=== PATIENT | female | born 1975 | race Caucasian/White ===

== ENCOUNTER 2016-09-02 06:12 | Inpatient (IN) | payer OTHER, MEDICAID ==
[2016-09-02] MEDS ORDERED: ceFAZolin 2 GM PREMIX (*) 2 GM/50 ML BAG IVPB ONE (06:38)
[2016-09-02] MEDS ORDERED: Ondansetron INJ* 2 MG/ML VIAL ONE (07:49)
[2016-09-02] MEDS ORDERED: Ketorolac INJ* 30 MG/ML 1 ML VIAL ONE (07:49)
[2016-09-02] MEDS ORDERED: OXYTOCIN* 10 UNITS/ML 1 ML VIAL ONE (07:49)
[2016-09-02] MEDS ORDERED: Morphine PF AMP (0.5MG/ML)* 5 MG/10 ML AMP ONE (07:50)
[2016-09-02] MEDS ORDERED: Phenylephrine IV* 40 MCG/ML 10 ML SYRINGE ONE (08:29)
[2016-09-02] MEDS ORDERED: oxyCODONE TAB* 5 MG TAB PO PRN (08:41)
[2016-09-02] MEDS ORDERED: DiMENhydriNATE IV* 50 MG/ML VIAL IV PUSH PRN (08:41)
[2016-09-02] MEDS ORDERED: ACETAMINOPHEN 1 GM/100 ML IVPB ONE (08:41)
[2016-09-02] MEDS ORDERED: HYDROmorphone INJ* 1 MG/ML CARPUJECT SYRINGE IV PRN (08:41)
[2016-09-02] MEDS ORDERED: Nalbuphine* 20 MG/ML 1 ML VIAL IV PRN (08:43)
[2016-09-02] MEDS ORDERED: Naloxone* 0.4 MG/ML 1 ML VIAL IV PRN (08:43)
[2016-09-02] MEDS ORDERED: Ondansetron INJ* 2 MG/ML VIAL IV PRN (08:43)
[2016-09-02] MEDS ORDERED: Acetaminophen TAB* 325 MG PO PRN (08:43)
[2016-09-02] MEDS ORDERED: Glycerin ADULT SUPP PR PRN (09:45)
[2016-09-02] MEDS ORDERED: Witch Hazel PAD* JAR TOPICAL PRN (09:45)
[2016-09-02] MEDS ORDERED: Dibucaine 1% 28.35 GM TUBE PR PRN (09:45)
[2016-09-02] MEDS ORDERED: Oxytocin in LR* 20 UNITS/1,000 ML BAG IVPB SCH (10:00)
[2016-09-02] MEDS: Ibuprofen TAB* 600 MG PO PRN ×2 (11:58→18:16)
[2016-09-02] MEDS: Simethicone TAB* 80 MG TAB.CHEW PO SCH ×3 (11:58→19:54)
[2016-09-02] MEDS: oxyCODONE/Acetamin 5/325 MG* TAB PO PRN ×3 (11:59→19:54)
[2016-09-02] MEDS: Docusate CAP* 100 MG PO SCH ×2 (14:15→19:54)
--- NOTE | 2016-09-02 22:10 | OP ---
DATE OF OPERATION: 09/02/16 - ROOM #117 DATE OF : 79 SURGEON: Lionel Bingham MD BORDER MEASURER AND CUTTER: Glenis Mcmahon CNM ANESTHESIOLOGIST: Karina Hassan MD ANESTHESIA: Spinal with Duramorph. PRE-OP DIAGNOSIS: Previous section and desires permanent sterilization. POST-OP DIAGNOSIS: Previous section and desires permanent sterilization. OPERATIVE PROCEDURE: Low transverse section and bilateral tubal ligation. COMPLICATIONS: None. FINDINGS: Include a viable female, Apgars 9 and 9, and weight was 6 pounds 11 ounces. ESTIMATED BLOOD LOSS: 600 cc. DESCRIPTION OF PROCEDURE: The patient identified, procedure identified as a low transverse section and bilateral tubal ligation. The patient was taken to the operating room and under spinal anesthesia, was prepped and draped in the usual fashion on the left lateral recumbent position. A Pfannenstiel incision was made in the abdomen through the old incision, carried down through fat, fascia, and peritoneum. A bladder flap was created via sharp and blunt dissection. A transverse incision was made in the lower uterine segment and extended laterally using the bandage scissors. The above infant was delivered through the incision with ease. The cord was doubly clamped and cut. The was handed to the waiting bandage maker. Cord blood was obtained. Placenta delivered spontaneously. The uterus was wiped out with a wet lap sponge. The uterine incision was then closed using 0 Polysorb in a running fashion. A second layer was used to imbricate the first layer. The right fallopian tube was followed out to its fimbriated end. The fimbria was clamped with a Lillie and ligated x2 and then excised. The same procedure was carried out on the left after following it out to its fimbriated end. Good hemostasis was verified. Uterus was placed back in the abdominal cavity. The peritoneum was then closed using 3-0 Polysorb in a running fashion. Good hemostasis was achieved in the subrectus layers. The fascia was closed using 0 Polysorb in a running fashion. The skin was undermined with Bovie and then copious irrigation was utilized and suctioned out. Good hemostasis was verified and the skin was closed with 4-0 Monocryl in a subcuticular fashion. All sponge and instrument counts were correct. The patient was returned to the recovery room in stable condition. [id number]/[place] #: [id number] [facility]
[2016-09-03] MEDS ORDERED: Acetaminophen TAB* 325 MG PO PRN (01:00)
[2016-09-03] MEDS ORDERED: Zolpidem TAB* 5 MG PO PRN (01:00)
[2016-09-03] MEDS: oxyCODONE/Acetamin 5/325 MG* TAB PO PRN ×5 (01:12→20:00)
[2016-09-03 07:24] LABS: Hematocrit 32 % (35-47); Hemoglobin 10.8 g/dl (12.0-16.0); Mean Corpuscular HGB Conc 33 g/dl (31-36); Mean Corpuscular Hemoglobin 30 pg (27-31); Mean Corpuscular Volume 90 fL (80-97); Mean Platelet Volume 10 um3 (7.4-10.4); Red Cell Distribution Width 14 % (10.5-15); White Blood Count 10.5 10^3/ul (3.5-10.8)
[2016-09-03] MEDS: Simethicone TAB* 80 MG TAB.CHEW PO SCH ×3 (07:42→20:00)
[2016-09-03] MEDS: Docusate CAP* 100 MG PO SCH ×3 (07:42→20:00)
[2016-09-03] MEDS: Ibuprofen TAB* 600 MG PO PRN ×3 (07:43→20:00)
[2016-09-03] MEDS ORDERED: Ferrous Gluconate TAB* 324 MG TAB PO SCH (09:00)
[2016-09-04] MEDS: oxyCODONE/Acetamin 5/325 MG* TAB PO PRN ×5 (01:00→21:41)
[2016-09-04] MEDS: Ibuprofen TAB* 600 MG PO PRN ×3 (07:22→19:37)
[2016-09-04] MEDS: Docusate CAP* 100 MG PO SCH ×3 (07:23→21:41)
[2016-09-04] MEDS: Simethicone TAB* 80 MG TAB.CHEW PO SCH ×5 (07:23→21:41)
[2016-09-05] MEDS: Ibuprofen TAB* 600 MG PO PRN ×2 (03:43→10:09)
[2016-09-05] MEDS: oxyCODONE/Acetamin 5/325 MG* TAB PO PRN ×2 (03:44→08:19)
[2016-09-05] MEDS: Docusate CAP* 100 MG PO SCH (08:19)
[2016-09-05] MEDS: Simethicone TAB* 80 MG TAB.CHEW PO SCH (08:19)
[2016-09-05 08:25] VITALS: BP 98/60
== END 2016-09-05 12:24 | disposition home or self-care (01) | DRG 540 ==
LOC: MCHOB 06:12
PROVIDERS: ADMIT Obstetrics & Gynecology; ATTEND Obstetrics & Gynecology
PROC: 4A1HXCZ Monitoring of Products of Conception, Cardiac Rate, External Approach (ICD-10-PCS; 2016-09-02)
PROC: 0UB70ZZ Excision of Bilateral Fallopian Tubes, Open Approach (ICD-10-PCS; 2016-09-02)
PROC: 10D00Z1 Extraction of Products of Conception, Low, Open Approach (ICD-10-PCS; principal; 2016-09-02 07:45)
DX: O34.211 Maternal care for low transverse scar from previous cesarean delivery (principal); O09.523 Supervision of elderly multigravida, third trimester; Z3A.39 39 weeks gestation of pregnancy; Z37.0 Single live birth; Z30.2 Encounter for sterilization
CPT/HCPCS: 36415; 85025; 88302; A9270-GY; J0690; J1885; J2405; J2590

== ENCOUNTER 2018-03-13 12:23 | Inpatient (IN) | payer OTHER, MEDICAID ==
[2018-03-13] MEDS ORDERED: NS 0.9% 1000 ML* 1,000 ML IV ONE ×3 (13:08→17:33)
[2018-03-13] MEDS ORDERED: Ciprofloxacin 400MG IVPREMIX(* 400 MG/200 ML BAG IVPB ONE (13:08)
--- NOTE | 2018-03-13 13:08 | ED ---
Abdominal Pain/Female - HPI Summary HPI Summary: This is scribe Bing Kem documenting for attending Rio Rivera MD. 42 year old F presenting to [facility] with complains of sharp right flank pain that radiates to her abdomen and her back since PM two days ago. The patient rates the pain 10/10 in severity. Symptoms aggravated by nothing. Symptoms alleviated by nothing. Patient's delivers HPI because patient does not speak Tamazight. He reports nausea and dizziness. He denies vomiting, painful urination. Patient additionally complains of fever x1 days, no cough. - History of Current Complaint Chief Complaint: EDFlankPain Stated Complaint: FEVER/ABD PAIN Time Seen by Provider: 03/13/18 12:54 Hx Obtained From: Family/Third Loader - Onset/Duration: Lasting Days - 2, Still Present Timing: Constant Severity Currently: Severe Pain Intensity: 10 Pain Scale Used: 0-10 Numeric Location: Flank - right Radiates: Yes Radiates to: Back, Other - abdomen Character: Sharp Aggravating Factor(s): Nothing Alleviating Factor(s): Nothing Associated Signs and Symptoms: Positive: Fever, Nausea, Other: - dizziness. Negative: Cough, Vomiting Allergies/Adverse Reactions: Allergies Allergy/AdvReac Type Severity Reaction Status Date / Time No Known Allergies Allergy Verified 03/13/18 12:51 Home Medications: Home Medications NK [No Home Medications Reported] 03/13/18 [History Confirmed 03/13/18] PMH/Surg Hx/FS Hx/Imm Hx Previously Healthy: No Endocrine/Hematology History: Denies: Hx Diabetes Cardiovascular History: Denies: Hx Hypertension Respiratory History: Denies: Hx Asthma - Surgical History Surgery Procedure, Year, and Place: csection x 3. bilateral tubal ligation Infectious Disease History: No Infectious Disease History: Denies: Traveled Outside the [place] in Last 30 Days - Family History Known Family History: Positive: Other - parents and grandparents at old age - Social History Alcohol Use: None Hx Substance Use: No Substance Use Type: Reports: None Hx Tobacco Use: No Smoking Status (MU): Never Smoked Tobacco Have You Smoked in the Last Year: No Review of Systems Positive: Fever Negative: Cough Positive: Nausea, Other - sharp right flank pain that radiates to her abdomen and back. Negative: Vomiting Neurological: Negative - Dizziness All Other Systems Reviewed And Are Negative: Yes Physical Exam - Summary Physical Exam Summary: Appearance: The patient is well-nourished in no moderate distress and in no acute pain. Skin: Patient is diaphoretic. HEENT: The head is normocephalic and atraumatic. The pupils are equal and reactive. The conjunctivae are clear and without drainage. Nares are patent and without drainage. Mouth reveals moist mucous membranes and the throat is without erythema and exudate. The external ears are intact. The ear canals are patent and without drainage. The tympanic membranes are intact. Neck: The neck is supple with full range of motion and non-tender. There are no carotid bruits. There is no neck vein distension. Respiratory: Chest is non-tender. Lungs are clear to auscultation and breath sounds are symmetrical and equal. Cardiovascular: Heart is regular rate and rhythm. There is no murmur or rub auscultated. There is no peripheral edema and pulses are symmetrical and equal. Abdomen: The abdomen is soft and non-tender. There are normal bowel sounds heard in all four quadrants and there is no organomegaly palpated. Musculoskeletal: There is no back tenderness noted. Extremities are non-tender with full range of motion. There is good capillary refill. There is no peripheral edema or calf tenderness elicited. Neurological: Patient is alert and oriented to person, place and time. The patient has symmetrical motor strength in all four extremities. Cranial nerves are grossly intact. Deep tendon reflexes are symmetrical and equal in all four extremities. Psychiatric: The patient has an appropriate affect and does not exhibit any anxiety or depression. Triage Information Reviewed: Yes Vital Signs On Initial Exam: Initial Vitals Temp Pulse Resp BP Pulse Ox 103.1 F 126 26 91/57 100 03/13/18 12:30 03/13/18 12:30 03/13/18 12:30 03/13/18 12:30 03/13/18 12:30 Vital Signs Reviewed: Yes Diagnostics - Vital Signs Vital Signs Temp Pulse Resp BP Pulse Ox 03/13/18 12:30 103.1 F 126 26 91/57 100 - Laboratory Result Diagrams: 03/13/18 13:27 03/13/18 13:27 Lab Statement: Any lab studies that have been ordered have been reviewed, and results considered in the medical decision making process. - CT Abd/Pel CT Interpretation Completed By: Radiologist - NO APPRECIABLE HYDRONEPHROSIS OR NEPHRO LITHIASIS. NO ACUTE NONCONTRAST CT PATHOLOGY OF THE VISUALIZED ABDOMEN OR PELVIS. ED physician has reviewed this report. Abdominal Pain Fem Course/Dx - Course Course Of Treatment: Ms Pierce presents to the emergency department complaining of right flank pain. Initially she had some dysuria but that has disappeared. Her urine did look to be infected. CT scan showed no sign of stone or obstruction. She presented febrile and tachycardic with a "soft" blood pressure. She got fluids and Cipro IV and the hospitalists were asked to admit her. - Diagnoses Provider Diagnoses: Sepsis, Pyelonephritis - Provider Notifications Discussed Care Of Patient With: Iggy Wells Time Discussed With Above Provider: 15:00 Instructed by Provider To: Other - Dr. Wells, hospitalist, agrees to admit patient. - Critical Care Time Critical Care Time: 30-74 min Discharge - Sign-Out/Discharge Documenting (check all that apply): Patient Departure - Admit - Discharge Plan Condition: Stable Disposition: ADMITTED TO [facility] Referrals: No Primary Care Phys,NOPCP [Primary Care Provider] - - Billing Disposition and Condition Condition: STABLE Disposition: Admitted to [facility]
[2018-03-13] MEDS ORDERED: Acetaminophen TAB* 325 MG PO ONE (13:09)
[2018-03-13] MEDS ORDERED: Ciprofloxacin 400MG IVPREMIX(* 400 MG/200 ML BAG ONE (13:13)
[2018-03-13 13:36] LABS: ABS Basophils 0 10^3/ul (0-0.2); ABS Eosinophils 0 10^3/ul (0-0.6); ABS Lymphocytes 0.6 10^3/ul (1.0-4.8); ABS Monocytes 0.8 10^3/ul (0-0.8); ABS Neutrophils 8.2 10^3/ul (1.5-7.7); ABS Nucleated RBC 0 10^3/ul; Eosinophil % 0.1 % (0-6); Hematocrit 38 % (35-47); Hemoglobin 12.7 g/dl (12.0-16.0); Mean Corpuscular HGB Conc 34 g/dl (31-36); Mean Corpuscular Hemoglobin 30 pg (27-31); Mean Corpuscular Volume 89 fL (80-97); Mean Platelet Volume 10.1 um3 (7.4-10.4); Nucleated Red Blood Cells % 0.1; Platelet Count 151 10^3/ul (150-450); Red Blood Count 4.27 10^6/ul (4.00-5.40); Red Cell Distribution Width 13 % (10.5-15); White Blood Count 9.6 10^3/ul (3.5-10.8)
--- NOTE | 2018-03-13 14:30 | RAD ---
CLINICAL HISTORY: right flank pain COMPARISON: March 03, 2015 TECHNIQUE: Multiple contiguous axial CT scans were obtained of the abdomen and pelvis, without intravenous contrast enhancement. Coronal and sagittal multiplanar reformations are submitted for review. Oral contrast was not administered. FINDINGS: The study is limited by the lack of intravenous contrast. This limits evaluation of the solid organs and vasculature. LUNG BASES: The lung bases are clear. LIVER: There is a simple cyst of the left lobe of liver. BILE DUCTS: There is no intrahepatic or extrahepatic biliary dilatation. GALLBLADDER: The gallbladder is normal, without pericholecystic inflammatory change. PANCREAS: The pancreas is normal, without mass or ductal dilatation. SPLEEN: Normal in size and appearance. UPPER GI TRACT: Evaluation of the gastrointestinal tract is limited by incomplete gastric distention. The upper GI tract is unremarkable. SMALL BOWEL AND MESENTERY: The small bowel is normal in contour, course, and caliber. There is no obstruction or dilatation. COLON: The colon is normal in contour, course, caliber. There is no pericolonic inflammatory change. The appendix is not well-visualized. There is no inflammatory change within the right lower quadrant. ADRENALS: Normal bilaterally. KIDNEYS: The kidneys are normal in shape, size, contour, and axis. There is no hydronephrosis or nephrolithiasis. BLADDER: The bladder is smooth in contour. PELVIC ORGANS: The uterus and adnexa are grossly normal for technique. AORTA: The aorta is normal. IVC: Unremarkable LYMPH NODES: There is no lymphadenopathy by size criteria. ABDOMINAL WALL: There is no evidence for abdominal wall hernia. BONES AND SOFT TISSUES: The bones and soft tissues are unremarkable. OTHER: None IMPRESSION: NO APPRECIABLE HYDRONEPHROSIS OR NEPHRO LITHIASIS. NO ACUTE NONCONTRAST CT PATHOLOGY OF THE VISUALIZED ABDOMEN OR PELVIS.
[2018-03-13 14:42] LABS: Urine Appearance Cloudy; Urine Blood 1+ (Negative); Urine Color Yellow; Urine Ketones 1+ (Negative); Urine Protein Negative (Negative); Urine Red Blood Cell 2+(6-10/hpf) (Absent); Urine Specific Gravity 1.009 (1.010-1.030); Urine Urobilinogen Negative (Negative); Urine White Blood Cell 3+(>20/hpf) (Absent)
[2018-03-13] MEDS ORDERED: Ketorolac INJ* 30 MG/ML 1 ML VIAL IV PUSH ONE (17:02)
[2018-03-13] MEDS ORDERED: Ketorolac INJ* 15 MG/ML 1 ML VIAL ONE (17:03)
[2018-03-13] MEDS ORDERED: cefTRIAXone(*) 1 GM in NS 0.9% 50 ML* 50 ML IVPB ONE (17:33)
[2018-03-13] MEDS ORDERED: Potassium Chlor TAB* 20 MEQ TAB.ER PO ONE (17:53)
[2018-03-13] MEDS ORDERED: traMADol TAB* 50 MG PO PRN (18:06)
[2018-03-13] MEDS ORDERED: Ketorolac INJ* 15 MG/ML 1 ML VIAL IV PUSH PRN (18:06)
--- NOTE | 2018-03-13 19:21 | PN ---
Sepsis Event Evaluation Date of Evaluation: 03/13/18 Time of Evaluation: 19:10 Current Stage of Sepsis: Septic Shock Vital Signs - Last 12 Hours: Vital Signs - 12 hr Temp Pulse Resp BP Pulse Ox 03/13/18 18:32 24 03/13/18 17:48 98.3 F 03/13/18 17:35 99.7 F 108 24 84/44 99 03/13/18 17:30 112 92/51 97 03/13/18 17:00 103 98/48 99 03/13/18 16:36 101.2 F 102 90/52 100 03/13/18 16:35 101 100 03/13/18 15:30 107 94/53 98 03/13/18 15:13 105 81/48 97 03/13/18 15:01 115 98 03/13/18 15:00 113 87/58 98 03/13/18 14:33 114 94/49 98 03/13/18 14:31 101.2 F 03/13/18 14:14 109 98 03/13/18 13:00 122 93/58 100 03/13/18 12:30 103.1 F 126 26 91/57 100 Lactic Acid: 03/13/18 03/13/18 13:27 18:04 Lactic Acid 1.8 1.0 - Cardiopulmonary Exam Capillary Refill: Immediate Respiratory: Symmetrical Chest Expansion and Respiratory Effort Cardiovascular: NL Sounds; No Murmurs; No JVD, RRR - Peripheral Pulse Exam Pedal Pulses: Bilateral Normal - Skin Exam Skin Exam: Normal Turgor - Melody Coma Scale Best Eye Response: 4 - Spontaneous Best Motor Response: 6 - Obeys Commands Best Verbal Response: 5 - Oriented Coma Scale Total: 15 Assess/Plan/Problems-Billing Assessment:
--- NOTE | 2018-03-13 22:12 | HP ---
HISTORY AND PHYSICAL: DATE OF ADMISSION: 03/13/18 ADMITTING PROVIDER: Iggy Wells MD PRIMARY CARE PROVIDER: None. CHIEF COMPLAINT: Flank pain, abdominal pain, fevers, chills, dizziness. HISTORY OF PRESENT ILLNESS: Eileen Barajas is a Mexican speaking 42-year-old female, no prior medical history, who presented with 36 hours of abdominal and flank pain and night prior to admission developed fevers, chills, shakes. Notably 2 weeks ago, she had dysuria and increased frequency which lasting 3 to 4 days, and then resolved spontaneously. She denies history of urinary tract infections. She currently describes the pain in the bilateral lower abdominal quadrants extremities, but worse in the right flank, which had been 10/10 and unrelenting. She has been taking Tylenol without relief also for the fevers. She had some nausea, but no vomiting. No blood in her stools. History was provided , who speaks better Macedonian and is her medical surrogate, William Barajas. In the [facility] Emergency Room, she was found to have fevers high as 103.1 initially, tachycardic up to 126, blood pressures 90s/50s, low of 81/ 48. She has gotten 2 L of normal saline fluid so far. Lactic acid is 1.8, CRP of 89. Lipase of negative 10. Urinalysis is significant for 1+ ketones, 1+ blood, positive nitrites, 1+ leukocyte esterases, 3+ wbc's, 2+ rbc's, and 1+ bacteria. She had a CT abdomen and pelvis, which demonstrated impression of no appreciable hydronephrosis or nephrolithiasis. No acute noncontrast CT pathology of the visualized abdomen or pelvis. She was referred to hospitalist service for admission for sepsis secondary to pyelonephritis/UTI. She was given a dose of 400mg of ciprofloxacin, Tylenol, and ketorolac. PAST MEDICAL HISTORY: None. MEDICATIONS: None except occasional Tylenol. ALLERGIES: No known drug allergies. FAMILY HISTORY: Mother is alive. Father had approximately at age 65, but does not have full details given separation between parents. 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 She is a never drinker, never a smoker. No drug use. Medical surrogate is William Barajas, her . She wishes to be a full code. REVIEW OF SYSTEMS: A complete 14-point review of systems negative except as per HPI. She denies cough, chest pain, chest tightness, shortness of breath, neck stiffness, headache, or visual changes. No sick contacts. She did go to a "festival" and had potato, chicken, and beef the day prior to the abdominal pain on Tuesday. PHYSICAL EXAMINATION GENERAL APPEARANCE: In no acute distress. VITAL SIGNS: Temperature currently 101.2 (Tmax 103.1), pulse rate 103, saturating 99% on room air, blood pressure 98/48. HEENT: Normocephalic, atraumatic. Pupils are equal, round, and reactive to light. Extraocular motions intact. No scleral icterus. Moist mucous membranes. No oropharyngeal lesions. PULMONARY: Clear to auscultation bilaterally with no wheezing, rales, or rhonchi. CARDIOVASCULAR: Tachycardic, regular. No murmurs, rubs, or gallops. ABDOMEN: Soft, minimally tender to palpation in the lower quadrants. No rebound, no guarding, no Zimmerman sign. No significant CVA tenderness on palpation. EXTREMITIES: Warm and well perfused. Slight tenderness noted on the left anterior york. NEURO: Cranial nerves II through XII intact. Moving all extremities. Independent Sales Representative strength 5/5. SKIN: No lesions. No rashes. DIAGNOSTIC STUDIES/LABORATORY DATA: White count 9.6, hemoglobin 12.7, hematocrit 38, platelets 151, neutrophil percentage 85.4%. Sodium 138, potassium 3.4, chloride 108, carbon dioxide 20, BUN 7, creatinine 0.65, glucose 108, lactic acid 1.8, calcium 8.4. Total bili 0.9, AST 8, ALT 5, alk phos 55. CRP 89. Total protein 6.3. Lipase negative 10. Albumin 3.5. Urinalysis significant for specific gravity 1.009, 1+ ketones, 1+ blood, positive nitrites , 1+ leukocyte esterase, 3+ wbc's, 2+ rbc's, 1+ bacteria. Imaging: CT abdomen and pelvis, noncontrast, demonstrated no acute CT pathology of the visualized abdomen and pelvis including no appreciable hydronephrosis or nephrolithiasis. ASSESSMENT AND PLAN: Eileen Barajas is a 42-year-old Mexican speaking otherwise healthy female presenting with 2 days of severe abdominal and flank pain, now 16 hours of high fevers up to at least 103 here. She has evidence of urinary tract infection, though no hydronephrosis or fat stranding on the noncontrast CT abdomen and pelvis. She was started on ciprofloxacin and will be transitioned to ceftriaxone. She is relatively hypotensive, MAP is currently 68 , but she has been as low in the room in the mid 50s. I am giving her 1 L more bolus of normal saline, MAP goal of 65, suspicion for sepsis secondary to pyelonephritis. We will follow up urine cultures. Unfortunately blood cultures were not obtained prior to antibiotic administration in the ED. The patient has fevers for first few days and will be admitted to inpatient status and check CBC and BMP daily. Replete her electrolytes, potassium above 4, and magnesium. She is a full code. Medical surrogate is her , William Barajas. She will continue the cardiac diet. For DVT prophylaxis, heparin 5000 t.i.d. [id number]/[facility] #: [id number] [facility]
[2018-03-13] MEDS ORDERED: Ondansetron ODT TAB* 4 MG SL PRN (23:21)
[2018-03-14] MEDS: Acetaminophen TAB* 325 MG PO PRN ×2 (02:15→15:21)
[2018-03-14 07:01] LABS: ABS Basophils 0 10^3/ul (0-0.2); ABS Eosinophils 0 10^3/ul (0-0.6); ABS Lymphocytes 1.2 10^3/ul (1.0-4.8); ABS Monocytes 0.9 10^3/ul (0-0.8); ABS Neutrophils 6.8 10^3/ul (1.5-7.7); ABS Nucleated RBC 0 10^3/ul; Eosinophil % 0.2 % (0-6); Hematocrit 33 % (35-47); Hemoglobin 10.8 g/dl (12.0-16.0); Lymphocyte % 13.3 % (25-47); Mean Corpuscular HGB Conc 33 g/dl (31-36); Mean Corpuscular Hemoglobin 30 pg (27-31); Mean Corpuscular Volume 90 fL (80-97); Nucleated Red Blood Cells % 0; Platelet Count 124 10^3/ul (150-450); Red Blood Count 3.62 10^6/ul (4.00-5.40); Red Cell Distribution Width 13 % (10.5-15); White Blood Count 8.9 10^3/ul (3.5-10.8)
[2018-03-14 07:32] LABS: EGFR Non-African American 122.4 (>60)
--- NOTE | 2018-03-14 13:46 | PN ---
Subjective Date of Service: 03/14/18 Interval History: Ms. Pierce is feeling better this morning. She has been afebrile for a few hours. Her tachycardia has resolved. Her SBP remains in 85-90s. She denies complaint. She specifically denies flank pain, abdominal pain, nausea, or dysuria. She further denies chest pain or SOB. Objective Active Medications: Acetaminophen (Tylenol Tab*) 650 mg PO Q6H PRN Ceftriaxone Sodium 1 gm/ (Sodium Chloride) 50 mls @ 200 mls/hr IVPB Q24H FIDEL[facility] Ketorolac Tromethamine (Toradol Inj*) 15 mg IV PUSH Q6H PRN Ondansetron HCl (Zofran Odt Tab*) 4 mg SL Q6H PRN Tramadol HCl (Ultram*) 50 mg PO Q6H PRN Vital Signs: Temp Pulse Resp BP Pulse Ox 98.3 F 90 18 89/52 100 03/14/18 11:17 03/14/18 11:17 03/14/18 11:17 03/14/18 11:17 03/14/18 11:17 Oxygen Devices in Use Now: None Result Diagrams: 03/14/18 06:50 03/14/18 06:50 Assess/Plan/Problems-Billing Assessment: Ms. Pierce is a 42 yo female with no significant PMH who was admitted on with sepsis secondary to pyelonephritis. - Patient Problems (1) Sepsis Comment: - Afebrile this morning, tachycardia resolved, remains relatively hypotensive. - Lactic acid 1.8 -> 1.0. - Plan for additional fluid bolus and them resume maintenance fluids. - Abx per below. (2) Pyelonephritis Comment: - Symptoms resolving. - Presented with flank pain with fever, tachycardia and suspected UTI. - CT without evidence of stranding or hydronephrosis. - UA positive but urine culture shows no growth. BC pending, however they were obtained after abx were started and may be of low yield. - Continue ceftriaxone for 24 hours and then consider d/c on oral abx. (3) Anemia Comment: - Intermittent chronic, ? related to menses. - Iron studies, B12, folate pending. - Follow up with PCP as indicated. (4) DVT prophylaxis Comment: - SCDs. (5) Full code status Comment: Status and Disposition: Inpatient. Anticipate discharge to home when medically stable.
[2018-03-14] MEDS ORDERED: NS 0.9% 1000 ML* 1,000 ML IV ONE (13:50)
[2018-03-14] MEDS: NS 0.9% 1000 ML* 1,000 ML IV SCH ×3 (15:22→23:51)
--- NOTE | 2018-03-14 16:54 | RAD ---
INDICATION: Pyelonephritis. COMPARISON: Comparison is made with a prior CT of the abdomen and pelvis from March 13, 2018. TECHNIQUE: Multiple real-time images of the kidneys were obtained. FINDINGS: The kidneys are normal in size shape and echogenicity. The right kidney measured 12.0 x 4.1 x 5.1 cm and the left kidney measured 11.7 x 5.0 x 4.9 cm. No focal renal abnormality or hydronephrosis is seen. There is a small amount of fluid in the perinephric space adjacent to the superior and inferior poles of the right kidney. No abscess is seen. IMPRESSION: SMALL AMOUNT OF FLUID IN THE RIGHT PERINEPHRIC SPACE CONSISTENT WITH THE PATIENT'S HISTORY OF PYELONEPHRITIS.
[2018-03-14] MEDS: cefTRIAXone(*) 1 GM in NS 0.9% 50 ML* 50 ML IVPB SCH (17:47)
[2018-03-15 06:56] LABS: ABS Basophils 0 10^3/ul (0-0.2); ABS Eosinophils 0.1 10^3/ul (0-0.6); ABS Lymphocytes 1.2 10^3/ul (1.0-4.8); ABS Monocytes 0.5 10^3/ul (0-0.8); ABS Neutrophils 3.4 10^3/ul (1.5-7.7); ABS Nucleated RBC 0 10^3/ul; Eosinophil % 1.3 % (0-6); Hematocrit 30 % (35-47); Hemoglobin 10.1 g/dl (12.0-16.0); Lymphocyte % 22.9 % (25-47); Mean Corpuscular HGB Conc 34 g/dl (31-36); Mean Corpuscular Hemoglobin 30 pg (27-31); Mean Corpuscular Volume 88 fL (80-97); Mean Platelet Volume 10.6 um3 (7.4-10.4); Nucleated Red Blood Cells % 0; Platelet Count 104 10^3/ul (150-450); Red Blood Count 3.37 10^6/ul (4.00-5.40); Red Cell Distribution Width 13 % (10.5-15); White Blood Count 5.1 10^3/ul (3.5-10.8)
[2018-03-15 07:15] LABS: EGFR Non-African American 136.6 (>60)
[2018-03-15] MEDS: NS 0.9% 1000 ML* 1,000 ML IV SCH ×2 (08:30→23:05)
[2018-03-15] MEDS ORDERED: Cyanocobalamin INJ * 1,000 MCG/ML VIAL 1 ML VIAL IM ONE (09:00)
[2018-03-15] MEDS: Docusate CAP* 100 MG PO SCH ×2 (09:50→20:06)
[2018-03-15] MEDS: Polyethylene Glycol 3350* 17 GM PACKET PO SCH ×2 (09:51→20:06)
[2018-03-15] MEDS ORDERED: Magnesium Sulfate 2 GM IV* 2 GM/50 ML BAG IVPB ONE (10:00)
[2018-03-15] MEDS ORDERED: Ferric Gluconate IV* 25 MG in NS 0.9% 50 ML* 50 ML IVPB ONE (10:00)
--- NOTE | 2018-03-15 14:41 | PN ---
Subjective Date of Service: 03/15/18 Interval History: HOSPITALIST PROGRESS NOTE Patient seen and examined at bedside. Care reviewed and d/w Doris Fonseca RN. She doesn't feel better today. Still has nausea, no vomiting; diffuse abdominal discomfort and dysuria. Right flank pain still present, but less intense. Family History: Unchanged from Admission Social History: Unchanged from Admission Past Medical History: Unchanged from Admission Objective Active Medications: Acetaminophen (Tylenol Tab*) 650 mg PO Q6H PRN PRN Reason: FEVER/PAIN Last Admin: 03/14/18 15:21 Dose: 650 mg Docusate Sodium (Colace Cap*) 100 mg PO BID [facility] Last Admin: 03/15/18 09:50 Dose: 100 mg Ceftriaxone Sodium 1 gm/ (Sodium Chloride) 50 mls @ 200 mls/hr IVPB Q24H [facility] Last Admin: 03/14/18 17:47 Dose: 200 mls/hr Sodium Chloride (Ns 0.9% 1000 Ml*) 1,000 mls @ 100 mls/hr IV .ENTER RATE [facility] Ondansetron HCl (Zofran Odt Tab*) 4 mg SL Q6H PRN PRN Reason: NAUSEA/VOMITING Polyethylene Glycol/Electrolytes (Miralax*) 17 gm PO 0800,2100 [facility] Last Admin: 03/15/18 09:51 Dose: 17 gm Tramadol HCl (Ultram*) 50 mg PO Q6H PRN PRN Reason: PAIN Last Admin: 03/13/18 18:32 Dose: 50 mg Vital Signs - 8 hr 03/15/18 03/15/18 07:43 08:00 Temperature 100.4 F Pulse Rate 77 Respiratory 21 21 Rate Blood Pressure 103/66 (mmHg) O2 Sat by Pulse 99 Oximetry Oxygen Devices in Use Now: None Appearance: Young lady lying in bed in [facility]. Eyes: No Scleral Icterus Ears/Nose/Mouth/Throat: Mucous Membranes Moist Neck: Trachea Midline Respiratory: Symmetrical Chest Expansion and Respiratory Effort, Clear to Auscultation Cardiovascular: NL Sounds; No Murmurs; No JVD, RRR Abdominal: - - Soft, mild diffuse tenderness, NG, NR, mild right CVAT, BS+ Extremities: No Edema Neurological: Alert and Oriented x 3, NL Muscle Strength and Tone Result Diagrams: 03/15/18 06:39 03/15/18 06:39 Assess/Plan/Problems-Billing Assessment: Ms. Pierce is a 42 yo female with no significant PMH who presented to ED on with dysuria, flank pain, and fever, found to have sepsis secondary to pyelonephritis. - Patient Problems (1) Sepsis Comment: - Presentation compatible with sepsis on admission with fever and tachycardia. - Source is pyelonephritis. (2) Pyelonephritis Comment: - Present on admission, not Martini catheter related. - Symptoms improved when compared to admission, but still present. - Presented with flank pain, fever, tachycardia and urinalysis showed positive nitrates, LE, WBCs, but culture shows no growth so far - will request ID input. - CT done on admission showed no evidence of stranding or hydronephrosis. US showed small amount of fluid in the right perinephric space, compatible with pyelo - plan to repeat US in 48h. - UA positive but urine culture shows no growth. BC pending, however they were obtained after abx were started and may be of low yield. - Continue ceftriaxone for 24 hours and then consider d/c on oral abx. (3) Anemia Comment: - Combination of iron and B12 deficiencies - will replete. (4) DVT prophylaxis Comment: - SCDs. (5) Full code status Comment: Status and Disposition: Inpatient.
--- NOTE | 2018-03-15 16:37 | CONS ---
CONSULTATION REPORT: DATE OF CONSULT: 03/15/18 REQUESTING PHYSICIAN: Dr. Ray. CONSULTING SERVICE: Infectious Disease. REASON FOR CONSULT: Fever, right flank pain. IMPRESSION: 1. Initially with fever and rigors, severe right flank pain without significant dysuria, though some foul odor to the urine. Urinalysis on admission showed blood, nitrites, leukocyte esterase, white cells. Cultures negative. She had not been taking antibiotics as an outpatient. She had a dose of ciprofloxacin in the emergency room started at the same time as the urine culture was charted out, so it is possible she had a slug of Cipro before. The urine was obtained and that may have led to a false negative urine culture. She does have urinary tract infection and right-sided pyelonephritis, possible early perinephric abscess. 2. History of tubal ligation. 3. Sepsis was present on admission, resolved. RECOMMENDATIONS: Continue ceftriaxone and supportive care. I expect she will have slow and continued improvement over the next few days, but because of the perinephric fluid collection, we should repeat that ultrasound in a couple of days before she leaves. Make sure it is not getting bigger. HISTORY OF PRESENT ILLNESS: This is a 42-year-old woman admitted with onset of fever, shaking chills, malaise, nausea, lower abdominal and right flank pain. The pain was more severe in the right flank. She had a little bit of lower abdominal pain with some foul urine. No dysuria. Because of her worsening symptoms, she came to the hospital on 04/13/18. Her said he had to practically carry her in here. CT abdomen and pelvis at that time was unremarkable and ultrasound done yesterday shows perinephric fluid around the right kidney. Initially, she was febrile to 39.5 degrees with tachycardia and tachypnea. She was started on ciprofloxacin. Her urinalysis had shown blood and nitrites. The culture was sent and it has since come negative. Her energy and appetite are little bit better. Her right flank pain is better, but not gone. Her suprapubic pain has gone. She has no bowel movement in 3 days and she feels bloated today. She is passing gas. Her last fever was this morning at 38 degrees and none overnight, though she said the night before she had sweats and shaking chills, she did not have those last night. Her says she looks much improved even though she is still a little bit uncomfortable, much better than when they got here. She has not had other urinary tract infection in the recent past. PAST MEDICAL HISTORY: Status post x2 and tubal ligation. MEDICATIONS: 1. Atenolol. 2. Docusate. 3. Zofran. 4. Ceftriaxone 1 g a day. 5. Tramadol. FAMILY HISTORY: No recurrent infection. SOCIAL HISTORY: She is from [facility]. She lives here with her and children. She did have a trip back to [facility] about 2 months ago, was there 2 to 3 weeks, was not ill while there. Nobody else have been sick at home. REVIEW OF SYSTEMS: All negative to a 14-point review of systems except as noted above in the history of present illness. PHYSICAL EXAM: Vital Signs: Temperature 38, heart rate 70, respiratory rate 20 , blood pressure 103/66, oxygen saturation 99% on room air. In general, she is awake, appears mildly uncomfortable, not in distress. HEENT: Mucous membranes are moist. There is no thrush. Neck: Supple without mass. Lymph Nodes: There is no cervical, supra-clavicular, inguinal, axillary, or epitrochlear lymphadenopathy. Heart is regular rate and rhythm without murmurs, rubs, or gallops. Lungs are clear to auscultation bilaterally. Abdomen: Soft, mildly distended, nontender. There is no rebound. There are bowel sounds present. There is no suprapubic tenderness or left flank tenderness. There is slight right flank tenderness to palpation. Skin: There is no rash or splinter hemorrhage. Musculoskeletal: There is no spinal tenderness to palpation or joint synovitis. LABORATORY DATA: White blood cell count 5, hemoglobin 10, and platelets of 104. Creatinine is 0.5. Please see impressions and recommendations as outlined above, which I have discussed with Dr. Ray. Thanks for asking me to see Ms. Pierce in consultation. [id number]/[facility] #: [id number] [facility]ENTER[facility]annah
[2018-03-15] MEDS: cefTRIAXone(*) 1 GM in NS 0.9% 50 ML* 50 ML IVPB SCH (18:18)
[2018-03-16 06:50] LABS: ABS Basophils 0.1 10^3/ul (0-0.2); ABS Eosinophils 0.1 10^3/ul (0-0.6); ABS Lymphocytes 1.2 10^3/ul (1.0-4.8); ABS Monocytes 0.5 10^3/ul (0-0.8); ABS Neutrophils 3.9 10^3/ul (1.5-7.7); ABS Nucleated RBC 0 10^3/ul; Eosinophil % 2.1 % (0-6); Hematocrit 31 % (35-47); Hemoglobin 10.5 g/dl (12.0-16.0); Lymphocyte % 20.3 % (25-47); Mean Corpuscular HGB Conc 34 g/dl (31-36); Mean Corpuscular Hemoglobin 30 pg (27-31); Mean Corpuscular Volume 88 fL (80-97); Mean Platelet Volume 10.3 um3 (7.4-10.4); Nucleated Red Blood Cells % 0.1; Platelet Count 125 10^3/ul (150-450); Red Blood Count 3.48 10^6/ul (4.00-5.40); Red Cell Distribution Width 13 % (10.5-15); White Blood Count 5.7 10^3/ul (3.5-10.8)
[2018-03-16 07:28] LABS: EGFR Non-African American 139.9 (>60)
--- NOTE | 2018-03-16 08:45 | PN ---
Progress Note - Progress Note Date of Service: 03/16/18 SOAP: Subjective: CC: pyelonephritis HPI: 42 yo woman with fever, rigors, right flank pain; pain is gone, no fever overnight and no sweats either. Appetite is decreased, no abd pain but bloated , +flatus. No rash, on her lips has a couple painful bumps. Objective: Vital Signs Temp 36.8 C 03/16/18 03:19 Pulse 82 03/16/18 03:19 Resp 16 03/16/18 03:19 BP 111/71 03/16/18 03:19 Pulse Ox 100 03/16/18 03:19 Intake & Output 03/15/18 03/16/18 03/16/18 18:59 06:59 18:59 Intake Total 2077 2175 Output Total 0 Balance 2077 2175 Intake: IV Fluids 1517 1935 IV fluid & abx 1517 1935 Oral 560 240 Output: Urine 0 Other: Date of Last Bowel unknown Movement # Bowel Movements 0 # Voids 1 Gen:awake, no distress HEENT: no thrush; 1 mm pustules lower lip Heart:RRR no murmur Lungs:CTA BL Abd:+BS NTND soft Skin: no rash MSK: no spine or flank tenderness Laboratory Results - last 24 hr 03/16/18 03/16/18 06:42 06:42 WBC 5.7 RBC 3.48 L Hgb 10.5 L Hct 31 L MCV 88 MCH 30 MCHC 34 RDW 13 Plt Count 125 L MPV 10.3 Neut % (Auto) 68.0 Lymph % (Auto) 20.3 L [place] % (Auto) 8.7 H Eos % (Auto) 2.1 Baso % (Auto) 0.9 Absolute Neuts (auto) 3.9 Absolute Lymphs (auto) 1.2 Absolute Monos (auto) 0.5 Absolute Eos (auto) 0.1 Absolute Basos (auto) 0.1 Absolute Nucleated RBC 0 Nucleated RBC % 0.1 Sodium 140 Potassium 3.9 Chloride 113 H Carbon Dioxide 22 Anion Gap 5 BUN 4 L Creatinine 0.49 L Est GFR ( Amer) 169.2 Est GFR (Non-Af Amer) 139.9 BUN/Creatinine Ratio 8.2 Glucose 98 Calcium 7.8 L C-Reactive Protein 55.21 H Assessment: 1. Right pyelonephritis; improving 2. fever, resolved 3. elevated CRP improving 4. lip pustules due to stress response Plan: 1. continue ceftriaxone; recheck US 03/17 to be sure perinephric fluid not increasing, if it is not then cipro 500 mg po bid x7 more days
[2018-03-16] MEDS: Polyethylene Glycol 3350* 17 GM PACKET PO SCH ×2 (09:15→20:32)
[2018-03-16] MEDS: Docusate CAP* 100 MG PO SCH ×2 (09:15→20:32)
[2018-03-16] MEDS: NS 0.9% 1000 ML* 1,000 ML IV SCH (09:16)
[2018-03-16] MEDS ORDERED: Cyanocobalamin INJ * 1,000 MCG/ML VIAL 1 ML VIAL IM ONE (10:58)
[2018-03-16] MEDS ORDERED: Ferric Gluconate IV* 100 MG in NS 0.9% 100 ML* 100 ML IVPB ONE (12:00)
--- NOTE | 2018-03-16 13:10 | PN ---
Subjective Date of Service: 03/16/18 Interval History: HOSPITALIST PROGRESS NOTE Patient seen and examined at bedside. Care reviewed and d/w Janie Rico RN. She feels better today. Right flank pain is much improved, remains afebrile. Appetite is returning and her brought her some bread today. Family History: Unchanged from Admission Social History: Unchanged from Admission Past Medical History: Unchanged from Admission Objective Active Medications: Acetaminophen (Tylenol Tab*) 650 mg PO Q6H PRN PRN Reason: FEVER/PAIN Last Admin: 03/14/18 15:21 Dose: 650 mg Docusate Sodium (Colace Cap*) 100 mg PO BID [facility] Last Admin: 03/16/18 09:15 Dose: 100 mg Ceftriaxone Sodium 1 gm/ (Sodium Chloride) 50 mls @ 200 mls/hr IVPB Q24H [facility] Last Admin: 03/15/18 18:18 Dose: 200 mls/hr Ondansetron HCl (Zofran Odt Tab*) 4 mg SL Q6H PRN PRN Reason: NAUSEA/VOMITING Polyethylene Glycol/Electrolytes (Miralax*) 17 gm PO 0800,2100 [facility] Last Admin: 03/16/18 09:15 Dose: 17 gm Tramadol HCl (Ultram*) 50 mg PO Q6H PRN PRN Reason: PAIN Last Admin: 03/13/18 18:32 Dose: 50 mg Vital Signs - 8 hr 03/16/18 03/16/18 03/16/18 07:57 08:00 11:23 Temperature 98.7 F 98.3 F Pulse Rate 77 84 Respiratory 18 16 18 Rate Blood Pressure 98/65 102/66 (mmHg) O2 Sat by Pulse 98 100 Oximetry Oxygen Devices in Use Now: None Appearance: Pleasant young lady lying in bed in NAD. Eyes: No Scleral Icterus Ears/Nose/Mouth/Throat: Mucous Membranes Moist Neck: Trachea Midline Respiratory: Symmetrical Chest Expansion and Respiratory Effort, Clear to Auscultation Cardiovascular: NL Sounds; No Murmurs; No JVD, RRR Abdominal: NL Sounds; No Tenderness; No Distention Neurological: Alert and Oriented x 3, NL Muscle Strength and Tone Result Diagrams: 03/16/18 06:42 03/16/18 06:42 Assess/Plan/Problems-Billing Assessment: Ms. Pierce is a 42 yo female with no significant PMH who presented to ED on with dysuria, flank pain, and fever, found to have sepsis secondary to pyelonephritis. - Patient Problems (1) Sepsis Comment: - Presentation compatible with sepsis on admission with fever and tachycardia. - Source is pyelonephritis. (2) Pyelonephritis Comment: - Present on admission, not Martini catheter related. - Symptoms improved when compared to admission, but still present. - Presented with flank pain, fever, tachycardia and urinalysis showed positive nitrates, LE, WBCs, but culture was negative. - CT done on admission showed no evidence of stranding or hydronephrosis. US showed small amount of fluid in the right perinephric space, compatible with pyelo - plan to repeat US in 48h. - ID input appreciated - repeat US tomorrow to r/o perinephric abscess. - UA positive but urine culture shows no growth. BC pending, however they were obtained after abx were started and may be of low yield. (3) Anemia Comment: - Combination of iron and B12 deficiencies - will replete. (4) DVT prophylaxis Comment: - SCDs. (5) Full code status Comment: Status and Disposition: Inpatient.
[2018-03-16] MEDS: cefTRIAXone(*) 1 GM in NS 0.9% 50 ML* 50 ML IVPB SCH (17:31)
[2018-03-17] MEDS: Polyethylene Glycol 3350* 17 GM PACKET PO SCH (08:04)
[2018-03-17] MEDS: Docusate CAP* 100 MG PO SCH (08:04)
--- NOTE | 2018-03-17 09:02 | RAD ---
HISTORY: Pyelonephritis f/u, r/o abscess COMPARISONS: March 14, 2018, CT dated March 13, 2018 TECHNIQUE: Multiple transverse and longitudinal ultrasound images were obtained of the kidneys using grayscale and color Doppler imaging. FINDINGS: RIGHT KIDNEY: The right kidney is normal in shape, size, contour, and echogenicity. There is no hydronephrosis or nephrolithiasis. Again noted is a small amount of free fluid in the perinephric space without loculated fluid collection. The right kidney measures 11.2 x 3.7 x 4.5 cm. LEFT KIDNEY: The left kidney is normal in shape, size, contour, and echogenicity. There is no hydronephrosis or nephrolithiasis. The left kidney measures 11 x 4 cm x 4.8 cm. BLADDER: No images are submitted of the bladder. AORTA AND IVC: No images are submitted of the vasculature. RETROPERITONEUM: Unremarkable. OTHER: There is small amount of perisplenic ascites. IMPRESSION: 1. AGAIN NOTED IS A SMALL AMOUNT OF FREE FLUID WITHIN THE RIGHT PERINEPHRIC SPACE WITHOUT LOCULATED FLUID COLLECTION. 2. SMALL AMOUNT OF PERINEPHRIC ASCITES.
[2018-03-17 12:23] VITALS: BP 98/58
--- NOTE | 2018-03-18 04:15 | DS ---
CC: Dr. French DISCHARGE SUMMARY: DATE OF ADMISSION: 03/13/18 DATE OF DISCHARGE: 03/17/18 PRIMARY CARE PROVIDER: The patient has no primary care provider at this time, but this will be set u p. DISCHARGE DIAGNOSES: 1. Sepsis, present on admission. 2. Pyelonephritis. 3. Iron deficiencies/vitamin B12 deficiency anemia. MEDICATION LIST: 1. Ferrous sulfate 325 mg p.o. b.i.d. 2. Cyanocobalamin 1000 mcg p.o. daily. 3. Ciprofloxacin 500 mg p.o. q.12 hours for 10 more days. 4. Acetaminophen 650 mg p.o. q.6 hours p.r.n. pain or fever. HOSPITAL COURSE: Ms. Eileen Barajas is a 42-year-old lady with no significant past medical history, wh o presented to the emergency room with complaints of right flank pain associated with fever, chills, and shakes proceeded by 2 weeks of dysuria and frequency. For more details about her presentation, I refer you to her history and physical. In the emergency room, the patient had a CT of the abdomen and pelvis that showed no appreciable hydr onephrosis or nephrolithiasis. Her urinalysis was abnormal with 1+ blood, positive nitrites, positiv e LE, 3+ wbc's. The patient was found to be septic with fever 103.1 and tachycardia and this source was found to be p yelonephritis. She was admitted, started on IV hydration, antibiotics, but her urine culture showed no growth. The patient had a followup renal ultrasound that showed small amount of fluid in the right perinephri c space consistent with the patient's history of pyelonephritis. The patient was seen in consultation by Infectious Disease (Dr. French). She was seen by Dr. Rajinder dumont and his recommendation was to continue ceftriaxone and to repeat her ultrasound in 48 hours to ma ke sure the fluid collection was not increasing or turning into abscess. The patient had progressive improvement in her symptoms and on 03/17/18, she was asymptomatic and fel t well enough to be discharged. Of note, the patient was found to be anemic with a hemoglobin of 10.5 and mild thrombocytopenia. Her workup revealed her iron level less than 15 with a ferritin of 69 and a vitamin B12 level of 120. T he patient received parenteral iron and cyanocobalamin in the hospital and she will continue oral sup plementation as outpatient, but she will need monitoring of her hemoglobin, B12, and iron level as ou tpatient. I suspect her anemia is likely secondary to menstrual loss and dietary. The patient had a renal ultrasound done on the day of discharge that showed again a small amount of f ree fluid within the right perinephric space with fluid collection and small amount of perineph stanton ascites. These findings were discussed with Urology (Dr. Li) and he felt that this was com patible with her presentation of pyelonephritis and did not suggest a perinephric abscess. He recomm ended checking a postvoid residual and it was only 22 cc. The patient will be discharged home today and the arrangements will be made for her to follow up with her primary care provider as outpatient. DIET: Regular diet. ACTIVITY: As tolerated. DISPOSITION: To home. STATUS WHILE IN THE HOSPITAL: Inpatient. Please keep in mind this is a summarized version of this patient's hospital stay. If you need more in formation, please feel free to call me at [phone] or please obtain the full medical records. TIME SPENT: Approximately, 45 minutes were spent to complete this discharge. [id number]/[facility] #: [id number]
== END 2018-03-17 14:50 | disposition home or self-care (01) | DRG 720 ==
LOC: ED 12:23 → MED 17:17
PROVIDERS: ADMIT Internal Medicine; ATTEND Internal Medicine
DX: A41.9 Sepsis, unspecified organism (principal); N12 Tubulo-interstitial nephritis, not specified as acute or chronic; D51.9 Vitamin B12 deficiency anemia, unspecified; D50.9 Iron deficiency anemia, unspecified
CPT/HCPCS: 36415; 74176; 76775; 80048; 80053; 81003; 81015; 82607; 82728; 82746; 83540; 83550; 83605; 83690; 83735; 85025; 86140; 87040; 87086; 99284; A9270-GY; J0696; J0744; J1885; J2916; J3420; J3475

== ENCOUNTER 2018-10-06 14:33 | Inpatient (IN) | payer MEDICAID, OTHER ==
[2018-10-06 18:21] LABS: ABS Basophils 0 10^3/ul (0-0.2); ABS Eosinophils 0 10^3/ul (0-0.6); ABS Lymphocytes 0.9 10^3/ul (1.0-4.8); ABS Monocytes 0.2 10^3/ul (0-0.8); ABS Neutrophils 11.6 10^3/ul (1.5-7.7); ABS Nucleated RBC 0 10^3/ul; Eosinophil % 0.4 %; Hematocrit 40 % (35-47); Hemoglobin 13.1 g/dl (12.0-16.0); Lymphocyte % 6.7 %; Mean Corpuscular HGB Conc 33 g/dl (31-36); Mean Corpuscular Hemoglobin 29 pg (27-31); Mean Corpuscular Volume 89 fL (80-97); Mean Platelet Volume 11.3 fL (7.4-10.4); Nucleated Red Blood Cells % 0; Platelet Count 161 10^3/ul (150-450); Red Blood Count 4.45 10^6/ul (4.00-5.40); Red Cell Distribution Width 13 % (10.5-15); White Blood Count 12.8 10^3/ul (3.5-10.8)
[2018-10-06] MEDS ORDERED: Ketorolac INJ* 30 MG/ML 1 ML VIAL IV PUSH ONE (18:28)
[2018-10-06] MEDS ORDERED: NS 0.9% 1000 ML** 2,000 ML IV ONE (18:28)
[2018-10-06] MEDS ORDERED: cefTRIAXone(*) 1 GM in NS 0.9% 50 ML* 50 ML IVPB ONE (18:28)
--- NOTE | 2018-10-06 18:31 | ED ---
GI/ HPI - HPI Summary HPI Summary: This patient is a 43 year old F presenting to [facility] accompanied by her with a chief complaint of right sided back pain since 1 day ago. The patient reports that the pain radiates to her right flank. The patient rates the pain 8/ 10 in severity. Symptoms aggravated by nothing. Symptoms alleviated by nothing. Patient reports emesis, fever, tremors, chills, pain after urination, and increased frequency of urination. Patient has hx of . Patient notes that she has been able eat and drink today. Patient denies . Pt took Tylenol x2 at 11:00. - History of Current Complaint Chief Complaint: EDAbdPain Time Seen by Provider: 10/06/18 18:01 Stated Complaint: RIGHT ABD/FLANK PAIN/FEVER Hx Obtained From: Patient, Family/Cement Conveyor Operator - patient's Onset/Duration: Started Days Ago - 1 day, Atraumatic, Still Present Timing: Constant, Lasting Days - 1 day Severity: Moderate Current Severity: Moderate Pain Intensity: 5 Location of Pain: Radiates to: - right flank, Other - right lower back pain Pain Radiates to: Flank - right flank Associated Signs and Symptoms: Positive: Back Pain - right side, Vomiting, Fever , Dysuria, Flank Pain, Chills, Other: - tremors Aggravating Factor(s): Nothing Alleviating Factor(s): Nothing - Additional Pertinent History Primary Care Physician: [id number] - Allergy/Home Medications Allergies/Adverse Reactions: Allergies Allergy/AdvReac Type Severity Reaction Status Date / Time No Known Allergies Allergy Verified 03/13/18 12:51 PMH/Surg Hx/FS Hx/Imm Hx Endocrine/Hematology History: Denies: Hx Diabetes Cardiovascular History: Reports: Other Cardiovascular Problems/Disorders - During first , had high blood pressure Denies: Hx Hypertension Respiratory History: Reports: Other Respiratory Problems/Disorders - sometimes gets short of breath Denies: Hx Asthma Sensory History: Denies: Hx Contacts or Glasses, Hx Hearing Aid Opthamlomology History: Denies: Hx Contacts or Glasses - Surgical History Surgery Procedure, Year, and Place: csection x 3. bilateral tubal ligation Infectious Disease History: No Infectious Disease History: Denies: Traveled Outside the [place] in Last 30 Days - Family History Known Family History: Positive: Other - parents and grandparents at old age - Social History Alcohol Use: None Hx Substance Use: No Substance Use Type: Reports: None Hx Tobacco Use: No Smoking Status (MU): Never Smoked Tobacco Have You Smoked in the Last Year: No Review of Systems Positive: Fever, Chills Negative: Erythema Negative: Sore Throat Negative: Chest Pain Negative: Shortness Of Breath, Cough Negative: Abdominal Pain, Vomiting, Nausea Positive: frequency - increased, flank pain - right, pain - after urination. Negative: dysuria Negative: Myalgia, Edema Negative: Rash Neurological: Negative - negative dizziness, Other - tremulous All Other Systems Reviewed And Are Negative: Yes Physical Exam - Summary Physical Exam Summary: Constitutional: Well-developed, Well-nourished, Alert. (-) Distressed Skin: Warm, Dry HENT: Normocephalic; Atraumatic Eyes: Conjunctiva normal Neck: Musculoskeletal ROM normal neck. (-) JVD, (-) Stridor, (-) Tracheal deviation Cardio: Rhythm regular, rate normal, Heart sounds normal; Intact distal pulses; The pedal pulses are 2+ and symmetric. Radial pulses are 2+ and symmetric. (-) Murmur Pulmonary/Chest wall: Effort normal. (-) Respiratory distress, (-) Wheezes, (-) Rales Abd: Soft, (-) epigastric tenderness, (-) Distension, (-) Guarding, (-) Rebound , (+) Right side CVA tenderness Musculoskeletal: (-) Edema Lymph: (-) Cervical adenopathy Neuro: Alert, Oriented x3 Psych: Mood and affect Normal Triage Information Reviewed: Yes Vital Signs On Initial Exam: Initial Vitals Temp Pulse Resp BP Pulse Ox 98.7 F 102 18 91/58 97 10/06/18 14:51 10/06/18 14:51 10/06/18 14:51 10/06/18 14:51 10/06/18 14:51 Vital Signs Reviewed: Yes Diagnostics - Vital Signs Vital Signs Temp Pulse Resp BP Pulse Ox 10/06/18 16:43 99.4 F 98 18 108/62 98 10/06/18 14:51 98.7 F 102 18 91/58 97 - Laboratory Lab Results: Lab Results 10/06/18 Range/Units 18:15 WBC 12.8 H (3.5-10.8) 10^3/ul RBC 4.45 (4.00-5.40) 10^6/ul Hgb 13.1 (12.0-16.0) g/dl Hct 40 (35-47) % MCV 89 (80-97) fL MCH 29 (27-31) pg MCHC 33 (31-36) g/dl RDW 13 (10.5-15) % Plt Count 161 (150-450) 10^3/ul MPV 11.3 H (7.4-10.4) fL Neut % (Auto) 90.7 % Lymph % (Auto) 6.7 % [place] % (Auto) 1.9 % Eos % (Auto) 0.4 % Baso % (Auto) 0.3 % Absolute Neuts (auto) 11.6 H (1.5-7.7) 10^3/ul Absolute Lymphs (auto) 0.9 L (1.0-4.8) 10^3/ul Absolute Monos (auto) 0.2 (0-0.8) 10^3/ul Absolute Eos (auto) 0 (0-0.6) 10^3/ul Absolute Basos (auto) 0 (0-0.2) 10^3/ul Absolute Nucleated RBC 0 10^3/ul Nucleated RBC % 0 Result Diagrams: 10/06/18 18:15 10/06/18 18:15 Lab Statement: Any lab studies that have been ordered have been reviewed, and results considered in the medical decision making process. - CT CT Abd/Pelvis CT Interpretation Completed By: Radiologist Summary of CT Findings: IMPRESSION: 1. Mild right perinephric fat stranding, a nonspecific finding which can be seen with pyelonephritis. 2. No other acute abdominal findings. Dr. Stokes has reviewed this report. Re-Evaluation - Re-Evaluation first re-eval Re-Evaluation Time: 20:53 Change: Unchanged Comment: Patient and her are in agreement for admission GIGU Course/Dx - Course Course Of Treatment: This patient is a 43 year old F presenting to [facility] accompanied by her with a chief complaint of right sided back pain since 1 day ago. The patient reports that the pain radiates to her right flank. Patient reports emesis, fever, tremors, chills, pain after urination, and increased frequency of urination. 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 CT Abd/ Pelvis reveals, per radiologist, 1. Mild right perinephric fat stranding, a nonspecific finding which can be seen with pyelonephritis. 2. No other acute abdominal findings. ED physician has reviewed this radiology report. Flu is negative. In the ED course the patient was given IV fluids, Toradol, and Rocephin. Patient is hypotensive and febrile. Outpatient management would not be appropriate. We discussed patient care with Dr. Newsome, hospitalist, and they agreed to admit the patient to [facility]. Patient will be admitted to [facility]. Dx pyelonephritis. The patient is agreeable with this plan. 35 minutes of critical care time. - Diagnoses Provider Diagnoses: Pyelonephritis - Physician Notifications Discussed Care Of Patient With: Xuan Newsome Time Discussed With Above Provider: 21:02 Instructed by Provider To: Admit As Inpatient - Critical Care Time Critical Care Time: 30-74 min - 35 minutes Discharge - Sign-Out/Discharge Documenting (check all that apply): Patient Departure - admit to [facility] Patient Received Moderate/Deep Sedation with Procedure: No - Discharge Plan Condition: Stable Disposition: ADMITTED TO [facility] Referrals: Teddy Chavira MD [Primary Care Provider] - - Attestation Statements Document Initiated by Scribe: Yes Documenting Scribe: Ruba Cottrell Provider For Whom Scribe is Documenting (Include Credential): Darin Stokes MD Scribe Attestation: Ruba Armando, scribed for Darin Stokes MD on 10/06/18 at 2053. Status of Scribe Document: Ready
[2018-10-06 18:47] LABS: ALT 6 U/L (7-52); AST 11 U/L (13-39); Albumin 3.9 g/dL (3.2-5.2); Albumin/Globulin Ratio 1.3 (1-3); Alkaline Phosphatase 62 U/L (34-104); Anion Gap 5 mmol/L (2-11); BUN/Creatinine Ratio 13.6 (8-20); Blood Urea Nitrogen 8 mg/dL (6-24); C Reactive Protein 100.09 mg/L (<8.01); CO2 Carbon Dioxide 26 mmol/L (22-32); Calcium 8.9 mg/dL (8.6-10.3); Chloride 107 mmol/L (101-111); EGFR African American 135.9 (>60); EGFR Non-African American 112.3 (>60); Globulin 3.1 g/dL (2-4); Glucose 87 mg/dL (70-100); Potassium 3.6 mmol/L (3.5-5.0); Sodium 138 mmol/L (135-145)
[2018-10-06 19:58] LABS: Influenza A Molecular NEGATIVE (Negative); Influenza B Molecular NEGATIVE (Negative)
[2018-10-06 21:14] LABS: Urine Appearance Cloudy; Urine Bacteria Absent (Absent); Urine Bilirubin Negative (Negative); Urine Blood 2+ (Negative); Urine Color Yellow; Urine Glucose Negative (Negative); Urine Ketones 1+ (Negative); Urine Nitrite Negative (Negative); Urine Protein 1+(30 mg/dL) (Negative); Urine Red Blood Cell 3+(>10/hpf) (Absent); Urine Specific Gravity 1.012 (1.010-1.030); Urine Squamous Epithelial Cell Present (Absent); Urine Urobilinogen Negative (Negative); Urine White Blood Cell 3+(>20/hpf) (Absent)
[2018-10-06] MEDS ORDERED: NS 0.9% 1000 ML** 1,000 ML IV ONE (21:17)
[2018-10-06] MEDS ORDERED: Ondansetron INJ* 2 MG/ML VIAL IV PRN (22:00)
[2018-10-06] MEDS ORDERED: Docusate CAP* 100 MG PO PRN (22:00)
[2018-10-06] MEDS ORDERED: Senna TAB PO PRN (22:00)
[2018-10-06] MEDS ORDERED: Al Hydrox/Mg Hydrox/Simet LIQ* 30 ML UDC PO PRN (22:00)
--- NOTE | 2018-10-06 23:42 | HP ---
HISTORY AND PHYSICAL: DATE OF ADMISSION: 10/06/18 TIME OF EVALUATION: 2199. PRIMARY CARE PHYSICIAN: The patient does not have a primary care physician. CHIEF COMPLAINT: Right flank pain with dysuria. HISTORY OF PRESENT ILLNESS: This is a 43-year-old female with an unremarkable past medical history, who states she began yesterday with right flank and right groin pain with fever. She began having na usea, vomiting last night. She has also started with dysuria and urinary frequency. Patient denies any diarrhea. No chest pain, no shortness of breath, no URI symptoms, otherwise she has been managin g her pain with Tylenol at home. In the emergency room, patient had labs, imaging. She was given a liter of normal saline, 30 mg of Toradol, and 1 g of ceftriaxone and was referred to hospitalist serv ice for further evaluation. Otherwise, review of systems is negative. PAST MEDICAL HISTORY: The patient was admitted in February for a similar presentation for pyelonephritis and sepsis. PAST SURGICAL HISTORY: History of 3 C-sections. MEDICATIONS: Tylenol as needed. FAMILY HISTORY: Mother is healthy. Father at age 63, unsure of the cause. SOCIAL HISTORY: The patient lives at home with her and her 3 children, ages 2, 3, and 5. He r is her healthcare proxy. No history of smoking, alcohol, or illicit drug use. She works a [employer]. Code status is full code. REVIEW OF SYSTEMS: Fourteen-point review of systems as mentioned in the HPI; otherwise negative. PHYSICAL EXAMINATION GENERAL: No acute distress, resting comfortably. VITAL SIGNS: T-max 103, pulse rate 110, respiratory rate 20, oxygen saturation 99% on room air, bloo d pressure 91/54. HEENT: Head is normocephalic. Pupils are equal and reactive, anicteric. Oropharynx: Mucous membran es moist. NECK: Supple. RESPIRATORY: Clear to auscultation. No wheezes, rhonchi, or rales. CARDIAC: Tachycardia. No murmurs, rubs, or gallops. ABDOMEN: Hyperactive bowel sounds. Soft, nontender. No CVA tenderness. EXTREMITIES: No clubbing, cyanosis, or edema; +2 DP. NEUROLOGICAL: Alert and oriented x3. No gross focal neurological deficits. LABORATORY DATA: White count 12.8, hemoglobin 13.1, hematocrit 40, platelets 161,000. Sodium 138, potassium 3.6, chloride 107, bicarb 26, BUN 8, creatinine 0.59, glucose 87, CRP is 100. Urine shows +2 blood, +1 ketones, +3 leuks, +3 whites, present squamous cells. Flu is negative. RADIOGRAPHIC DATA: Abdomen and pelvis CT shows mild right perinephric fat stranding, a nonspecific f inding which can be seen with pyelonephritis. No other acute abdominal findings. ASSESSMENT: This is a 43-year-old previously healthy female, who presents to the emergency room with 2 days of right flank groin pain with dysuria, nausea, vomiting, found to have pyelonephritis. 1. Pyelonephritis with sepsis. Patient with a white count, tachycardic, and fever. Her blood press ures are soft, but she is mentating and responding to fluids. She did get a ceftriaxone done in the emergency room. Plan: We will admit her to [address] [place] [address], continue her on IV fluids, bolus as needed. Co ntinue ceftriaxone. We will also continue on Toradol as needed for pain. 2. FEN: Continue regular diet. 3. DVT prophylaxis. Patient scores a 1, low risk. We will encourage ambulation. 4. Code status. Full code. TIME SPENT: Greater than 30 minutes were spent doing the history and physical, more than half the ti me spent in direct patient contact. [id number]/[facility] #: [id number]
[2018-10-07] MEDS: Acetaminophen TAB* 325 MG PO PRN ×4 (01:00→21:05)
[2018-10-07] MEDS: NS 0.9% 1000 ML** 1,000 ML IV SCH ×3 (01:53→17:40)
[2018-10-07 07:28] LABS: ABS Basophils 0 10^3/ul (0-0.2); ABS Eosinophils 0 10^3/ul (0-0.6); ABS Lymphocytes 0.7 10^3/ul (1.0-4.8); ABS Monocytes 0.2 10^3/ul (0-0.8); ABS Neutrophils 7.7 10^3/ul (1.5-7.7); ABS Nucleated RBC 0 10^3/ul; Eosinophil % 0.5 %; Hematocrit 34 % (35-47); Hemoglobin 11.3 g/dl (12.0-16.0); Lymphocyte % 8.2 %; Mean Corpuscular HGB Conc 34 g/dl (31-36); Mean Corpuscular Hemoglobin 30 pg (27-31); Mean Corpuscular Volume 90 fL (80-97); Mean Platelet Volume 10.7 fL (7.4-10.4); Nucleated Red Blood Cells % 0; Platelet Count 105 10^3/ul (150-450); Red Blood Count 3.75 10^6/ul (4.00-5.40); Red Cell Distribution Width 13 % (10.5-15); White Blood Count 8.7 10^3/ul (3.5-10.8)
[2018-10-07 07:51] LABS: Calcium 7.6 mg/dL (8.6-10.3); EGFR African American 150.5 (>60); EGFR Non-African American 124.4 (>60); Potassium 3.3 mmol/L (3.5-5.0)
[2018-10-07] MEDS: Ketorolac INJ* 15 MG/ML 1 ML VIAL IV PUSH PRN (11:24)
[2018-10-07] MEDS ORDERED: cefTRIAXone(*) 1 GM in NS 0.9% 50 ML* 50 ML IVPB SCH (18:30)
[2018-10-07] MEDS ORDERED: Potassium Chlor TAB* 20 MEQ TAB.ER PO ONE (18:39)
--- NOTE | 2018-10-07 18:39 | PN ---
Subjective Date of Service: 10/07/18 Interval History: Pt c/o chills and shaking and some abd pain.Fever of 103 yesterday and continues low grade fever today Objective Active Medications: Acetaminophen (Tylenol Tab*) 650 mg PO Q4H PRN PRN Reason: FEVER/PAIN Last Admin: 10/07/18 15:40 Dose: 650 mg Al Hydrox/Mg Hydrox/Simethicone (Maalox Plus*) 30 ml PO Q6H PRN PRN Reason: INDIGESTION Docusate Sodium (Colace Cap*) 100 mg PO BID PRN PRN Reason: CONSTIPATION Sodium Chloride (Ns 0.9% 1000 Ml) 1,000 mls @ 125 mls/hr IV PER RATE [facility] Last Admin: 10/07/18 17:40 Dose: 125 mls/hr Ceftriaxone Sodium 1 gm/ (Sodium Chloride) 50 mls @ 200 mls/hr IVPB Q24H [facility]IDEL[facility] Last Admin: 10/07/18 17:40 Dose: 200 mls/hr Ketorolac Tromethamine (Toradol Inj*) 15 mg IV PUSH Q6H PRN PRN Reason: PAIN Last Admin: 10/07/18 11:24 Dose: 15 mg Ondansetron HCl (Zofran Inj*) 4 mg IV Q4H PRN PRN Reason: NAUSEA/VOMITING Senna (Senokot Tab*) 1 tab PO BID PRN PRN Reason: CONSTIPATION Vital Signs - 8 hr 10/07/18 10/07/18 11:16 15:12 Temperature 97.7 F 98.4 F Pulse Rate 119 94 Respiratory 20 28 Rate Blood Pressure 96/83 94/57 (mmHg) O2 Sat by Pulse 99 100 Oximetry Oxygen Devices in Use Now: None Eyes: No Scleral Icterus Ears/Nose/Mouth/Throat: NL Teeth, Lips, Gums Neck: NL Appearance and Movements; NL JVP Respiratory: Symmetrical Chest Expansion and Respiratory Effort Cardiovascular: NL Sounds; No Murmurs; No JVD Abdominal: - - abd discomfort on palpation, no rebound no guarding.no cva tenderness now Extremities: No Edema Skin: No Rash or Ulcers Neurological: Alert and Oriented x 3 Result Diagrams: 10/07/18 07:06 10/07/18 07:06 Additional Lab and Data: Lab Results 10/06/18 Range/Units 18:15 WBC 12.8 H (3.5-10.8) 10^3/ul RBC 4.45 (4.00-5.40) 10^6/ul Hgb 13.1 (12.0-16.0) g/dl Hct 40 (35-47) % MCV 89 (80-97) fL MCH 29 (27-31) pg MCHC 33 (31-36) g/dl RDW 13 (10.5-15) % Plt Count 161 (150-450) 10^3/ul MPV 11.3 H (7.4-10.4) fL Neut % (Auto) 90.7 % Lymph % (Auto) 6.7 % [place] % (Auto) 1.9 % Eos % (Auto) 0.4 % Baso % (Auto) 0.3 % Absolute Neuts (auto) 11.6 H (1.5-7.7) 10^3/ul Absolute Lymphs (auto) 0.9 L (1.0-4.8) 10^3/ul Absolute Monos (auto) 0.2 (0-0.8) 10^3/ul Absolute Eos (auto) 0 (0-0.6) 10^3/ul Absolute Basos (auto) 0 (0-0.2) 10^3/ul Absolute Nucleated RBC 0 10^3/ul Nucleated RBC % 0 Microbiology and Other Data: Microbiology 10/06/18 20:55 Urine Culture - Preliminary Urine Escherichia Coli 10/06/18 19:24 Influenza Types A,B Antigen - Final Nasal Specimen received for Influenza A/B Molecular testing Assess/Plan/Problems-Billing Assessment: - Patient Problems (1) Pyelonephritis Current Visit: No Status: Acute Code(s): N12 - TUBULO-INTERSTITIAL NEPHRITIS , NOT SPCF ACUTE OR CHRONIC SNOMED Code(s): 58925252 Comment: -Perinephric stranding c/w Pyelo -Fever of 103,chills -Continue Ceftriaxone -Await blood and urine cultures (2) Sepsis Current Visit: No Status: Acute Comment: - Presentation compatible with sepsis on admission with fever and tachycardia. - Source is pyelonephritis. -blood and urine cultures pending (3) DVT prophylaxis Current Visit: No Status: Acute Code(s): STQ7444 - SNOMED Code(s): 431805071 Comment: - SCDs. (4) Full code status Current Visit: No Status: Acute Code(s): Z78.9 - OTHER SPECIFIED HEALTH STATUS SNOMED Code(s): 694785770 Comment:
[2018-10-07] MEDS ORDERED: NS 0.9% 1000 ML** 1,000 ML IV SCH (18:41)
[2018-10-08] MEDS: Acetaminophen TAB* 325 MG PO PRN ×4 (03:07→23:20)
[2018-10-08 07:22] LABS: Hematocrit 31 % (35-47); Hemoglobin 10.6 g/dl (12.0-16.0); Mean Corpuscular HGB Conc 34 g/dl (31-36); Mean Corpuscular Hemoglobin 31 pg (27-31); Mean Corpuscular Volume 90 fL (80-97); Red Blood Count 3.48 10^6/ul (4.00-5.40); Red Cell Distribution Width 13 % (10.5-15); White Blood Count 5.9 10^3/ul (3.5-10.8)
[2018-10-08 07:33] LABS: BUN/Creatinine Ratio 10.2 (8-20); Calcium 7.6 mg/dL (8.6-10.3); EGFR African American 168.4 (>60); EGFR Non-African American 139.2 (>60); Potassium 3.6 mmol/L (3.5-5.0)
[2018-10-08 07:49] LABS: ABS Basophils 0 10^3/ul (0-0.2); ABS Eosinophils 0 10^3/ul (0-0.6); ABS Lymphocytes 0.6 10^3/ul (1.0-4.8); ABS Monocytes 0.5 10^3/ul (0-0.8); ABS Neutrophils 4.8 10^3/ul (1.5-7.7); ABS Nucleated RBC 0 10^3/ul; Eosinophil % 0.5 %; Mean Platelet Volume 10.5 fL (7.4-10.4); Nucleated Red Blood Cells % 0; Platelet Count 85 10^3/ul (150-450)
[2018-10-08] MEDS ORDERED: cefTRIAXone(*) 1 GM in NS 0.9% 50 ML* 50 ML IVPB ONE (10:00)
[2018-10-08] MEDS ORDERED: NS 0.9% 1000 ML** 1,000 ML IV SCH (12:23)
[2018-10-08] MEDS: NS 0.9% 1000 ML** 1,000 ML IV SCH (12:52)
[2018-10-08] MEDS: Ciprofloxacin 400MG IVPREMIX(* 400 MG/200 ML BAG IVPB SCH (13:24)
--- NOTE | 2018-10-08 15:21 | PN ---
Subjective Date of Service: 10/08/18 Interval History: Pt seen this am.Was crying and having rigors during exam. Low grade fever of 100 Objective Active Medications: Acetaminophen (Tylenol Tab*) 650 mg PO Q4H PRN PRN Reason: FEVER/PAIN Last Admin: 10/08/18 10:34 Dose: 650 mg Al Hydrox/Mg Hydrox/Simethicone (Maalox Plus*) 30 ml PO Q6H PRN PRN Reason: INDIGESTION Docusate Sodium (Colace Cap*) 100 mg PO BID PRN PRN Reason: CONSTIPATION Ciprofloxacin/Dextrose (Cipro 400 Mg Ivpremix(*)) 400 mg in 200 mls @ 200 mls/ hr IVPB Q12H [facility]IDEL[facility] Last Admin: 10/08/18 13:24 Dose: 200 mls/hr Sodium Chloride (Ns 0.9% 1000 Ml) 1,000 mls @ 125 mls/hr IV PER RATE [facility] Last Admin: 10/08/18 12:52 Dose: 125 mls/hr Sodium Chloride (Ns 0.9% 1000 Ml) 1,000 mls @ 125 mls/hr IV PER RATE [facility] Ketorolac Tromethamine (Toradol Inj*) 15 mg IV PUSH Q6H PRN PRN Reason: PAIN Last Admin: 10/07/18 11:24 Dose: 15 mg Ondansetron HCl (Zofran Inj*) 4 mg IV Q4H PRN PRN Reason: NAUSEA/VOMITING Last Admin: 10/08/18 03:35 Dose: 4 mg Senna (Senokot Tab*) 1 tab PO BID PRN PRN Reason: CONSTIPATION Vital Signs - 8 hr 10/08/18 10/08/18 07:30 11:15 Temperature 98.1 F 98.1 F Pulse Rate 73 98 Respiratory 22 18 Rate Blood Pressure 97/59 111/63 (mmHg) O2 Sat by Pulse 98 96 Oximetry Oxygen Devices in Use Now: None Appearance: rigors during exam Eyes: No Scleral Icterus Neck: NL Appearance and Movements; NL JVP Respiratory: Symmetrical Chest Expansion and Respiratory Effort Cardiovascular: NL Sounds; No Murmurs; No JVD Abdominal: NL Sounds; No Tenderness; No Distention, - Extremities: No Edema Neurological: Alert and Oriented x 3 Result Diagrams: 10/08/18 06:54 10/08/18 06:54 Additional Lab and Data: Lab Results 10/06/18 Range/Units 18:15 WBC 12.8 H (3.5-10.8) 10^3/ul RBC 4.45 (4.00-5.40) 10^6/ul Hgb 13.1 (12.0-16.0) g/dl Hct 40 (35-47) % MCV 89 (80-97) fL MCH 29 (27-31) pg MCHC 33 (31-36) g/dl RDW 13 (10.5-15) % Plt Count 161 (150-450) 10^3/ul MPV 11.3 H (7.4-10.4) fL Neut % (Auto) 90.7 % Lymph % (Auto) 6.7 % [place] % (Auto) 1.9 % Eos % (Auto) 0.4 % Baso % (Auto) 0.3 % Absolute Neuts (auto) 11.6 H (1.5-7.7) 10^3/ul Absolute Lymphs (auto) 0.9 L (1.0-4.8) 10^3/ul Absolute Monos (auto) 0.2 (0-0.8) 10^3/ul Absolute Eos (auto) 0 (0-0.6) 10^3/ul Absolute Basos (auto) 0 (0-0.2) 10^3/ul Absolute Nucleated RBC 0 10^3/ul Nucleated RBC % 0 Microbiology and Other Data: Microbiology 10/06/18 20:55 Urine Culture - Preliminary Urine Escherichia Coli 10/06/18 19:24 Influenza Types A,B Antigen - Final Nasal Specimen received for Influenza A/B Molecular testing Assess/Plan/Problems-Billing Assessment: - Patient Problems (1) Pyelonephritis Current Visit: No Status: Acute Code(s): N12 - TUBULO-INTERSTITIAL NEPHRITIS , NOT SPCF ACUTE OR CHRONIC SNOMED Code(s): 38015884 Comment: -Perinephric stranding c/w Pyelo -Fever of 103,chills -Has been on ceftriaxone -Blood cx negative -Urine culture liu sensitive E coli sensitive to Ceftriaxone however pt continues to have rigors chills and low grade temp -Will switch to Ciprofloxacin and evaluate progress (2) Sepsis Current Visit: No Status: Acute Comment: - Presentation compatible with sepsis on admission with fever and tachycardia. - Source is pyelonephritis. (3) DVT prophylaxis Current Visit: No Status: Acute Code(s): WQK8387 - SNOMED Code(s): 115836179 Comment: - SCDs. (4) Full code status Current Visit: No Status: Acute Code(s): Z78.9 - OTHER SPECIFIED HEALTH STATUS SNOMED Code(s): 324875895 Comment: Pt and family very worried about financial implications of hospital stay.But d/w case management.She is inpatient and her insurance should cover her stay.Not medically ready to be discharged yet with ongoing chills and rigors.Will eval progress on Cipro IV.If improves, can possibly be discharged tomorrow on PO Cipro
[2018-10-09] MEDS: NS 0.9% 1000 ML** 1,000 ML IV SCH ×3 (00:27→17:33)
[2018-10-09] MEDS: Ciprofloxacin 400MG IVPREMIX(* 400 MG/200 ML BAG IVPB SCH ×2 (00:27→13:16)
[2018-10-09] MEDS: Acetaminophen TAB* 325 MG PO PRN ×3 (06:00→18:46)
[2018-10-09 07:51] LABS: ABS Basophils 0 10^3/ul (0-0.2); ABS Eosinophils 0.1 10^3/ul (0-0.6); ABS Lymphocytes 0.6 10^3/ul (1.0-4.8); ABS Monocytes 0.2 10^3/ul (0-0.8); ABS Neutrophils 2.3 10^3/ul (1.5-7.7); ABS Nucleated RBC 0 10^3/ul; Hematocrit 30 % (35-47); Hemoglobin 9.9 g/dl (12.0-16.0); Lymphocyte % 19.4 %; Mean Corpuscular HGB Conc 33 g/dl (31-36); Mean Corpuscular Hemoglobin 30 pg (27-31); Mean Corpuscular Volume 89 fL (80-97); Mean Platelet Volume 10.5 fL (7.4-10.4); Nucleated Red Blood Cells % 0; Platelet Count 84 10^3/ul (150-450); Red Blood Count 3.34 10^6/ul (4.00-5.40); Red Cell Distribution Width 13 % (10.5-15); White Blood Count 3.2 10^3/ul (3.5-10.8)
[2018-10-09 08:05] LABS: BUN/Creatinine Ratio 10.5 (8-20); Calcium 7.5 mg/dL (8.6-10.3); EGFR African American 225.8 (>60); EGFR Non-African American 186.6 (>60); Potassium 3.6 mmol/L (3.5-5.0)
[2018-10-09 10:09] LABS: CRP High Sensitivity 87.7 mg/L (<2.00)
[2018-10-09] MEDS: Ketorolac INJ* 15 MG/ML 1 ML VIAL IV PUSH PRN (10:41)
[2018-10-09] MEDS ORDERED: Iohexol 350* (CONTRAST) 500 ML MDV IV ONE (13:10)
[2018-10-09] MEDS ORDERED: NS 0.9% 1000 ML** 1,000 ML IV SCH (16:10)
--- NOTE | 2018-10-09 16:19 | PN ---
Subjective Date of Service: 10/09/18 Interval History: Received notification for nurse this morning that patient was having chest pain. EKG ordered. VS reviewed and patient noted to be tachycardic and requiring supplemental O2 to main saturation above 90%. Patient assessed by this creative writer. Patient reports she has been having similar pain for several days intermittently, now pain is worse with deep inspiration. In addition she also has pain in upper back. Pain not reproducable with palpation, but it is reproducable with deep breathing. Pain does not radiation. No associated symptoms. EKG reviewed and unremarkable except tachycardia. DDimer ordered. Patient medicated and expressed relief from pain. In addition after medication patient is no longer requiring supplemental O2 to maintain saturation. DDimer resulted and elevated, therefore, CTA ordered. Awaiting appropriate IV placement for CTA. Patient denies sob, nausea, vomiting, diarrhea, abd pain. No reports chills or rigors today. Denies urinary symptoms. Reports continued low back pain. Objective Active Medications: Acetaminophen (Tylenol Tab*) 650 mg PO Q4H PRN PRN Reason: FEVER/PAIN Last Admin: 10/09/18 10:00 Dose: 650 mg Al Hydrox/Mg Hydrox/Simethicone (Maalox Plus*) 30 ml PO Q6H PRN PRN Reason: INDIGESTION Docusate Sodium (Colace Cap*) 100 mg PO BID PRN PRN Reason: CONSTIPATION Ciprofloxacin/Dextrose (Cipro 400 Mg Ivpremix(*)) 400 mg in 200 mls @ 200 mls/ hr IVPB Q12H [facility]EL[facility] Last Admin: 10/09/18 13:16 Dose: 200 mls/hr Sodium Chloride (Ns 0.9% 1000 Ml) 1,000 mls @ 75 mls/hr IV PER RATE [facility] Ketorolac Tromethamine (Toradol Inj*) 15 mg IV PUSH Q6H PRN PRN Reason: PAIN Last Admin: 10/09/18 10:41 Dose: 15 mg Ondansetron HCl (Zofran Inj*) 4 mg IV Q4H PRN PRN Reason: NAUSEA/VOMITING Last Admin: 10/08/18 03:35 Dose: 4 mg Senna (Senokot Tab*) 1 tab PO BID PRN PRN Reason: CONSTIPATION Vital Signs - 8 hr 10/09/18 10/09/18 10/09/18 08:56 10:06 10:30 Temperature 99.4 F Pulse Rate 119 Respiratory 28 20 Rate Blood Pressure 104/64 (mmHg) O2 Sat by Pulse 90 93 Oximetry 10/09/18 10/09/18 10:59 15:19 Temperature 99.0 F 98.3 F Pulse Rate 93 69 Respiratory 16 24 Rate Blood Pressure 110/72 108/68 (mmHg) O2 Sat by Pulse 95 96 Oximetry Oxygen Devices in Use Now: None Appearance: NAD Eyes: No Scleral Icterus Ears/Nose/Mouth/Throat: Clear Oropharnyx, Mucous Membranes Moist Neck: NL Appearance and Movements; NL JVP, Trachea Midline Respiratory: Symmetrical Chest Expansion and Respiratory Effort, Clear to Auscultation Cardiovascular: NL Sounds; No Murmurs; No JVD, RRR, No Edema Abdominal: NL Sounds; No Tenderness; No Distention Lymphatic: No Cervical Adenopathy Extremities: No Edema Skin: No Rash or Ulcers Neurological: Alert and Oriented x 3 Nutrition: Taking PO's Result Diagrams: 10/09/18 07:16 10/09/18 07:16 Additional Lab and Data: Laboratory Results - last 24 hr 10/08/18 10/09/18 10/09/18 06:54 07:16 07:16 WBC 3.2 L RBC 3.34 L Hgb 9.9 L Hct 30 L MCV 89 MCH 30 MCHC 33 RDW 13 Plt Count 84 L MPV 10.5 H Neut % (Auto) 71.1 Lymph % (Auto) 19.4 [place] % (Auto) 7.0 Eos % (Auto) 2.0 Baso % (Auto) 0.5 Absolute Neuts (auto) 2.3 Absolute Lymphs (auto) 0.6 L Absolute Monos (auto) 0.2 Absolute Eos (auto) 0.1 Absolute Basos (auto) 0 Absolute Nucleated RBC 0 Nucleated RBC % 0 Hem Pathologist Commnt D-Dimer, Quantitative Sodium 139 Potassium 3.6 Chloride 115 H Carbon Dioxide 19 L Anion Gap 5 BUN 4 L Creatinine 0.38 L Est GFR ( Amer) 225.8 Est GFR (Non-Af Amer) 186.6 BUN/Creatinine Ratio 10.5 Glucose 98 Calcium 7.5 L C-React Prot High Sens 87.70 H 10/09/18 10:36 WBC RBC Hgb Hct MCV MCH MCHC RDW Plt Count MPV Neut % (Auto) Lymph % (Auto) [place] % (Auto) Eos % (Auto) Baso % (Auto) Absolute Neuts (auto) Absolute Lymphs (auto) Absolute Monos (auto) Absolute Eos (auto) Absolute Basos (auto) Absolute Nucleated RBC Nucleated RBC % Hem Pathologist Commnt D-Dimer, Quantitative > 1050 H Sodium Potassium Chloride Carbon Dioxide Anion Gap BUN Creatinine Est GFR ( Amer) Est GFR (Non-Af Amer) BUN/Creatinine Ratio Glucose Calcium C-React Prot High Sens Microbiology and Other Data: Microbiology 10/06/18 19:49 Blood Venous Aerobic Blood Culture - Preliminary No Growth Day 2 10/06/18 19:49 Blood Venous Anaerobic Blood Culture - Preliminary No Growth Day 2 10/06/18 19:45 Blood Venous Aerobic Blood Culture - Preliminary No Growth Day 2 10/06/18 19:45 Blood Venous Anaerobic Blood Culture - Preliminary No Growth Day 2 10/06/18 20:55 Urine Urine Culture - Final Escherichia Coli 10/06/18 19:24 Nasal Influenza Types A,B Antigen - Final Specimen received for Influenza A/B Molecular testing Assess/Plan/Problems-Billing Assessment: 43 yr old female with unremarkable past medical hx who presented to ED with right flank and groin pain, fever, dysuria, nausea, vomiting. Patient had similar presentation in February and was found to have pyelonephritis. - Patient Problems (1) Anemia Comment: - 13.1/40 on admission and today 9.9/30 (which is closer to patient baseline in comparison to last admission) - I suspected admission results were due to hemoconcentration in the setting of dehydration. Patient has documented hx of anemia on previous admission. Will check iron panel and Vitamin B12 (2) Pyelonephritis Comment: - Perinephric stranding c/w Pyelo - Last recorded fever 10/08/18 at 0254 of 100.8 - Pablo been on ceftriaxone, but slow to improve therefore switched to Cipro yesterday - Blood cx negative - Urine culture liu sensitive E coli - Switched to Ciprofloxacin yesterday and some progress noted (3) Sepsis Comment: - Presentation compatible with sepsis on admission with fever and tachycardia. - Source is pyelonephritis. - Abx, fluids, and liu cultured - Resolving (4) DVT prophylaxis Comment: - SCDs. - Ambulation (5) Full code status Comment: - Full Code Status and Disposition: Pt and family very worried about financial implications of hospital stay. But d/ w case management. She is inpatient and her insurance should cover her stay. Not medically ready to be discharged yet with ongoing chills and rigors. Will cont to eval progress on Cipro IV. If improves, can possibly be discharged on PO Cipro Attending: Ubaldo De Jesus
[2018-10-10] MEDS: Ciprofloxacin 400MG IVPREMIX(* 400 MG/200 ML BAG IVPB SCH ×2 (01:04→13:27)
[2018-10-10] MEDS: Ketorolac INJ* 15 MG/ML 1 ML VIAL IV PUSH PRN (01:05)
[2018-10-10] MEDS: Acetaminophen TAB* 325 MG PO PRN (03:44)
[2018-10-10] MEDS: NS 0.9% 1000 ML** 1,000 ML IV SCH (07:14)
[2018-10-10 08:04] LABS: ABS Basophils 0 10^3/ul (0-0.2); ABS Eosinophils 0.1 10^3/ul (0-0.6); ABS Lymphocytes 1.2 10^3/ul (1.0-4.8); ABS Monocytes 0.5 10^3/ul (0-0.8); ABS Neutrophils 3.3 10^3/ul (1.5-7.7); ABS Nucleated RBC 0 10^3/ul; Eosinophil % 1.4 %; Hematocrit 31 % (35-47); Hemoglobin 10.6 g/dl (12.0-16.0); Mean Corpuscular HGB Conc 34 g/dl (31-36); Mean Corpuscular Hemoglobin 30 pg (27-31); Mean Corpuscular Volume 89 fL (80-97); Mean Platelet Volume 10.5 fL (7.4-10.4); Nucleated Red Blood Cells % 0.1; Platelet Count 119 10^3/ul (150-450); Red Blood Count 3.54 10^6/ul (4.00-5.40); Red Cell Distribution Width 13 % (10.5-15)
[2018-10-10 08:19] LABS: Anion Gap 7 mmol/L (2-11); Blood Urea Nitrogen 6 mg/dL (6-24); CO2 Carbon Dioxide 21 mmol/L (22-32); Calcium 7.9 mg/dL (8.6-10.3); Chloride 111 mmol/L (101-111); EGFR African American 164.5 (>60); Glucose 100 mg/dL (70-100); Potassium 3.7 mmol/L (3.5-5.0); Sodium 139 mmol/L (135-145)
[2018-10-10 08:22] LABS: Total Iron Binding Capacity 220 mcg/dL (250-450); Transferrin 157 mg/dL (203-362)
[2018-10-10 08:23] LABS: % Iron Saturation 8 % (15-55); Iron < 17 ug/dL (50-212)
[2018-10-10 08:42] LABS: Folate > 20.00 ng/mL (>3.99)
[2018-10-10 09:52] LABS: Ferritin 76.6 ng/mL (11-307)
--- NOTE | 2018-10-10 12:14 | ECHO ---
Patient: KAILA RAMIREZ [facility] Rec#: [id number] : 1975 Date: 10/10/2018 Age: 43y Height: 168 cm / 66.1 in Weight: 55 kg / 121.2 lbs Sex: F BSA: 1.62 Room#: [facility] Admit Date#: 10/07/2018 Type: Inpatient Referring: Latosha Reis Reading: Paul Dhaliwal MD Sales Engineering Manager: Yael Torres RDCS,RDMS Transthoracic Echocardiogram Indication: CP, SOB BP: 104/63 HR: 93 Rhythm: NSR Findings History: Pyelonephritis Technical Comments: The study quality is fair. Left Ventricle: The left ventricular chamber size is normal. There is no left ventricular hypertrophy. Global left ventricular wall motion and contractility are within normal limits. There is normal left ventricular systolic function. The estimated ejection fraction is 55-60%. Normal left ventricular diastolic filling is observed. Left Atrium: The left atrial chamber size is normal. Right Ventricle: The right ventricular chamber size and systolic function are within normal limits. Right Atrium: The right atrial cavity size is normal. Aortic Valve: The aortic valve is trileaflet. Systolic excursion of the aortic valve is normal. There is no evidence of aortic regurgitation. There is no evidence of aortic stenosis. Mitral Valve: The mitral valve leaflets appear normal. There is a trace of mitral regurgitation. There is no evidence of mitral stenosis. Tricuspid Valve: The tricuspid valve leaflets are normal. There is mild to moderate tricuspid regurgitation. No pulmonary hypertension is noted. Pulmonic Valve: The pulmonic valve structure is not well visualized. There is a trace pulmonic regurgitation. Pericardium: There is no significant pericardial effusion. A left pleural effusion is present. Aorta: The aortic root appears normal. There is no dilatation of the aortic arch. Pulmonary Artery: The main pulmonary artery appears normal. Venous: The inferior vena cava is dilated. There is less than 50% respiratory change in the inferior vena cava dimension. Summary: There was not any prior study for comparison. Conclusions Global left ventricular wall motion and contractility are within normal limits. There is normal left ventricular systolic function. The estimated ejection fraction is 55-60%. There is no evidence of aortic stenosis. There is a trace of mitral regurgitation. There is mild to moderate tricuspid regurgitation. No pulmonary hypertension is noted. There is no significant pericardial effusion. A left pleural effusion is present. Measurements Name Value Normal Range RVIDd (AP) 2D 2.4 cm (0.9 - 2.6) RVDdMajor (2D) 2 cm (2.2 - 4.4) RAd ISD 4CH 4.6 cm (3.4 - 4.9) RA (A4C)W 4.1 cm (2.9 - 4.6) IVSd (2D) 0.8 cm (0.6 - 1) LVPWd (2D) 0.7 cm (0.6 - 1) LVIDd (2D) 4.7 cm (3.6 - 5.4) LVIDs (2D) 3 cm - LV FS (2D) 37 % (25 - 45) Aortic Annulus 1.7 cm (1.4 - 2.6) Ao root diameter (2D) 2.5 cm (2.1 - 3.5) Ascending Ao 2.4 cm (2.1 - 3.4) Aortic arch 2.4 cm (1.8 - 3.4) LA dimension (AP) 2D 3.3 cm (2.3 - 3.8) LAd ISD 4CH 5 cm (2.9 - 5.3) LA ISD 4CH W 3.7 cm (2.5 - 4.5) Name Value Normal Range LA ESV BP (A/L) index 23 ml/m2 - Name Value Normal Range MV E-wave Vmax 1 m/sec - MV deceleration time 156 msec - MV A-wave Vmax 0.4 m/sec - MV E:A ratio 2.6 ratio - LV septal e' Vmax 0.12 m/sec - LV lateral e' Vmax 0.13 m/sec - LV E:e' septal ratio 9 ratio - LV E:e' lateral ratio 8 ratio - Name Value Normal Range AV Vmax 1.5 m/sec - AV VTI 27 cm - AV peak gradient 9 mmHg - AV mean gradient 5 mmHg - LVOT Vmax 1.3 m/sec - LVOT VTI 25 cm - LVOT peak gradient 7 mmHg - LVOT mean gradient 4 mmHg - RAINA Vmax 0.7 m/sec - Name Value Normal Range TR Vmax 2.6 m/sec - TR peak gradient 27 mmHg - RAP 3 mmHg - RVSP 30 mmHg - IVC diameter 2.2 cm - Name Value Normal Range PV Vmax 0.8 m/sec - PV peak gradient 2.6 mmHg -
[2018-10-10 16:57] VITALS: BP 105/64
--- NOTE | 2018-10-10 17:56 | CONS ---
CC: Latosha Reis NP; Dr. Chavira * CONSULTATION REPORT: DATE OF CONSULT: 10/10/18 REQUESTING PHYSICIAN: Latosha Reis NP CONSULTING SERVICE: Infectious Disease. Dr. Fuad French * (dictated by Monica Gambino NP) REASON FOR CONSULTATION: Right-sided flank pain with diagnosis of pyelonephritis with fever. IMPRESSION: 1. Right sided pyelonephritis. Initially with fevers, right flank pain, and right groin pain with associated nausea and vomiting starting the night prior to presentation. Additionally, she reported dysuria and urinary frequency. She had a urinalysis on admission showing 1+ proteins, 1+ ketones, 2+ blood, nitrite negative, 3+ leukocyte esterase, 3+ wbc's, 3+ rbc's, squamous epithelial cells present. Urine culture with E. coli 50,000 to 75,000, this is liu sensitive. She had not recently been on antibiotics as an outpatient. She received dose of IV ceftriaxone in the emergency room and received another dose of ceftriaxone the next day. She was then switched to ciprofloxacin on 10/08/18. 2. Sepsis was present on admission, resolved. 3. History of tubal ligation. RECOMMENDATIONS: She can be continued on oral Cipro to complete a 10-day course. In the setting of a repeat right-sided pyelonephritis, I recommend checking a postvoid residual to make sure that she does not have significant urinary retention. This could be done in the hospital or outpatient at the urology office. I also recommend referring her to urologist as she may need to have a cysto to evaluate the cause of her recurrent right-sided pyelonephritis. HISTORY OF PRESENT ILLNESS: Ms. Pierce is a 43-year-old female with past medical history significant for pyelonephritis with associated sepsis in February 2018 who was admitted for fevers, right-sided flank pain, right groin pain with associated nausea and vomiting with dysuria and urinary frequency. Due to her symptoms, she presented to the emergency room on 10/06/18. At that time, she had an abdomen and pelvis CT scan showing a mild right perinephric fat stranding , a nonspecific finding which can be seen with pyelonephritis and no other acute abdominal findings. She was initially febrile with a temperature max of 103 while in the emergency room, tachycardic, and tachypneic. She was started on ceftriaxone. Her urinalysis showed blood, wbc's. A culture was sent and returned showing E. coli 50,000 to 75,000, and was pansensitive. She has had negative blood cultures to date. She continued to have intermitted fevers and her antibiotic was changed to IV ciprofloxacin. She reports that her right flank pain resolved yesterday. She also states that her right lower abdomen/ suprapubic discomfort has resolved. She denies any fevers, chills, urinary symptoms such as dysuria, increased frequency or urgency. Her initial mild leukocytosis of 12.8 on admission has resolved. Last fever was approximately 24 hours ago. This is again her second urinary tract infection with right sided pyelonephritis since February 2018. PAST MEDICAL HISTORY: 1. Pyelonephritis with sepsis in February 2018. 2. Status post x2. 3. Tubal ligation. MEDICATIONS: Home medications include acetaminophen 650 mg oral every 6 hours as needed for fever or pain. Hospital medications include: 1. Acetaminophen 650 mg oral every 4 hours as needed for fever or pain. 2. Maalox 30 mL oral every 6 hours as needed for indigestion. 3. Ciprofloxacin 400 mg IV every 12 hours. 4. Colace 100 mg oral twice daily as needed for constipation. 5. Toradol 15 mg IV every 6 hours as needed for pain. 6. Zofran 4 mg IV every 4 hours as needed for nausea. 7. Senna 1 tablet oral twice daily as needed for constipation. 8. Sodium chloride at 75 mL an hour. ALLERGIES: No known drug allergies. FAMILY HISTORY: She states that her mother is healthy. Her father passed at age 63. She denies any family history of serious or recurrent infections. SOCIAL HISTORY: She denies tobacco, alcohol, recreational drug use. REVIEW OF SYSTEMS: I performed a 14-point review of systems. All the pertinent positives and negatives are mentioned in the history of present illness. The remaining review of systems is negative. PHYSICAL EXAMINATION: Vital Signs: Temperature 99.7, heart rate 87, respiratory rate 18, O2 sat 100% on room air, blood pressure 110/72. General Appearance: Alert, pleasant, appears to be in no acute distress. HEENT: Normocephalic, atraumatic. Pupils are equal and reactive to light. Extraocular movements are intact. Respiratory: No accessory muscle use. Lungs are clear to auscultation bilateral. Cardiovascular: Regular rate and rhythm. S1, S2 present. There are no murmurs, rubs, or gallops heard. Abdomen : Soft, nontender, nondistended. There are bowel sounds present x4. There is no suprapubic tenderness and no CVA tenderness bilateral. Extremities: No lower extremity edema. Neurological: Alert and oriented x4. Skin: No rashes or abnormalities seen on the exposed skin. LABORATORY DATA: White blood cell count 5.0, hemoglobin 10.6, hematocrit 31, platelet count 119. Creatinine 0.50. Please see impression and recommendations outlined above. Thank you for this consultation. TIME SPENT: Time for this consultation 45 minutes, and half of that was spent with the patient discussing medications, past medical history and the events leading up to her arrival today, and performing a physical examination. The case has been reviewed with the attending Dr. rFench and he agrees with the plan of care. Reviewed by SHAMA TUBBS 10/11/18 [id number]/[facility] #: [id number] LIANA
--- NOTE | 2018-10-10 22:32 | DS ---
CC: Dr. Chavira * DISCHARGE SUMMARY: DATE OF ADMISSION: 10/06/18 DATE OF DISCHARGE: 10/10/18 PRIMARY CARE PROVIDER: Dr. Chavira. ATTENDING PHYSICIAN: Dr. Iggy Wells * (dictated by Monique Salomon NP). PRIMARY DIAGNOSES: 1. Pyelonephritis. 2. Anemia. 3. Sepsis. CONSULTATIONS WHILE IN THE HOSPITAL: Dr. Fuad French, Infectious disease. PROCEDURES WHILE IN THE HOSPITAL: No procedures. STUDIES WHILE IN THE HOSPITAL: 1. Abdomen/pelvis CT: Impression: Mild right perinephric fat stranding, a nonspecific finding which can be seen in pyelonephritis. No other acute findings. 2. EKG: Impression: Sinus tachycardia. 3. CTA chest/thorax: Impression: No evidence of pulmonary emboli. Patchy opacities are now present in the right lower lobes with lesser involvement in the middle lobes and possible left lower lobe, could be representation of pneumonia in the appropriate clinical setting. Of note, the lung bases were clear on abdomen and pelvis CT on 10/06/18. Probable mild pulmonary edema. New small bilateral pleural effusions. Mildly enlarged mediastinal and bilateral hilar lymph nodes, possibly reactive. Recommend radiographic followup to ensure clearing. DISCHARGE HOME MEDICATIONS: New home medications: 1. Cipro 500 mg p.o. b.i.d. x6 days. Continued home medications: 2. Tylenol 325 mg tab 2 tabs p.o. q.6 hours p.r.n. pain or fever. Changed home medications: No changed home medications. Discontinued home medications: No home medications discontinued. HISTORY OF PRESENT ILLNESS/HOSPITAL COURSE: Mrs. Pierce is a 43-year-old female with an unremarkable past medical history, who presented to the emergency room on 10/06/18 with complaints of right flank and groin pain, fever , nausea, vomiting, dysuria, and increased urinary frequency. Please see the history and physical dictated by Xuan Newsome for complete summary of events leading up to hospitalization, but in short while in the emergency department, the patient had labs, imaging, received normal saline bolus, received Toradol, and was initiated on antibiotics. Due to findings on CT, which were consistent with pyelonephritis and with the patient's symptomatology, the hospitalists were asked to admit for further evaluation and treatment. While in the hospital, the patient was on the medical floor. She received IV fluids and ceftriaxone. In addition, the patient continued to receive Tylenol and Toradol as needed for pain and fever. On 10/08/18, it was noted that the patient continued to have a low-grade fever and was complaining of pain and rigors. Therefore, ceftriaxone was discontinued and the patient was switched to ciprofloxacin. The patient's hospital stay became more complicated on 10/09/18 when she began to complain of chest pain. In addition, the patient was noted to be tachycardic , tachypneic, and requiring supplemental O2. A D-dimer was ordered and was greater than 1050. CTA was ordered and was negative for pulmonary emboli. See CTA results as above. The patient improved with pain medication intervention. The patient is maintaining saturation on room air. Due to this event, the patient also had a transthoracic echocardiogram which revealed: Global left ventricular wall motion and contractility are within normal limits, normal left ventricular systolic function, estimated ejection of 55 to 60%, no evidence of aortic stenosis, there is trace mitral regurgitation, there is [id number] tricuspid regurgitation, there is no pulmonary hypertension, no significant pericardial effusion, there is left pleural effusion present. It should be mentioned that the patient was also seen here in February for pyelonephritis and sepsis. Due to the patient's clinical course and previous history, I asked Infectious Disease to consult. Infectious Disease saw the patient today and recommended that she complete a 10-day course of antibiotics. They agreed the patient could be discharged home today. The patient should be referred to Urology due to 2 episodes of pyelonephritis in 1 year. The patient should have a postvoid residual at her Urology followup. She may also require a cysto to evaluate the cause of her recurrent right-sided pyelonephritis. The patient is stable for discharge today. She has remained afebrile since last evening. The patient's vital signs are stable and as follows: Temp 98.9, pulse 79, RR 20, O2 saturation 95% on room air, blood pressure 105/64. REVIEW OF SYSTEMS: The patient denies flank pain, dysuria, frequency in urination, abdominal pain, chest pain, shortness of breath, cough, palpitations , dizziness, weakness. The patient does report occasional warm/cold flashes. As mentioned above, the patient has been afebrile since last evening. A 12- point review of systems was completed and all those were negative. PHYSICAL EXAM: General: Ms. Pierce is a 43-year-old female who is sitting in the chair, appears to be in no acute distress, appears stated age. HEENT: PERRLA. EOMs intact. Oral mucosa is moist without lesion. Neck: Supple. No lymphadenopathy. Cardiac: S1/S2 present. No murmurs, rubs, or gallops. Regular rate and rhythm. Respiratory: Lungs are clear to auscultation. The patient is satting well on room air. No wheezes, rhonchi, rales, or crackles. Abdomen: Abdomen is soft, nontender. Bowel sounds x4. No CVA tenderness. Extremities: Full range of motion. No pain or deformities. Neuro: Alert and oriented x4. No focal deficits. Skin: Skin is intact without lesion. DIAGNOSTIC STUDIES/LABORATORY DATA: WBC 5.0, hemoglobin 10.6, hematocrit 31, platelets 119. Sodium 139, potassium 3.7, chloride 111, carbon dioxide 21, BUN 6, creatinine 0.50. Iron is less than 17, TIBC is 220, percent saturation is 8 , unsaturated iron binding is less than 205. Transferrin is 157. Ferritin is 76.6. BMP 200, B12 316, folate greater than 20. DISCHARGE PLAN/FOLLOWUP: 1. Pyelonephritis: As mentioned above the patient has been sent in a prescription for Cipro 500 mg p.o. b.i.d. x6 days to complete a 10-day course of antibiotics. The patient has been referred to Urology for further evaluation of repeat episodes of right-sided pyelonephritis. We would recommend a postvoid residual scan at that time. The patient may also warrant a cysto. The patient should also follow up with her primary care provider next week for reassessment and to ensure improvement. 2. Sepsis: The patient met sepsis criteria on admission due to fever, tachycardia, infection source. The patient received IV fluids, antibiotics, was pancultured. Blood cultures are negative. Urine culture revealed E. coli. The patient's sepsis has resolved. 3. Anemia: It was noted that on admission the patient's H and H was 13.1 and 40. I suspect this is due to hemoconcentration due to dehydration. Her repeat H and H was 10.6 and 31. In reviewing the patient's previous admissions, it seems that anemia is something chronic for this patient. I did order an iron panel and vitamin B12 as results above. Given the patient's current infectious status, before treatment, I recommended that she follow up with her primary care provider for reassessment and proper treatment. 4. CTA findings: As mentioned above under studies, the patient did have a CTA which did not reveal a pulmonary emboli, but did reveal patchy opacities, mild pulmonary edema, new small bilateral pleural effusions, and mildly enlarged mediastinal and bilateral hilar lymph nodes. As for the patchy opacities, I have a low suspicion for pneumonia as the patient is currently afebrile, she is not tachycardic, she is not tachypneic, her white count has improved with antibiotics, she is not coughing, she does not have shortness of breath, no other URI symptoms. Therefore, she has been discharged on Cipro. I had encouraged the patient to follow up with her primary care provider in 1 to 2 weeks for reassessment. I have also educated the patient on new or worsening symptoms and when to return to the emergency room. As for the patchy opacities and mild pulmonary edema, I suspect that these 2 findings could also be consistent with pulmonary edema due to aggressive fluid resuscitation given the setting of sepsis. I would recommend a repeat imaging with her primary care provider to ensure this has resolved. As for the small pleural effusions and mildly enlarged lymph nodes, again I would recommend repeat imaging for followup to ensure clearing with primary care provider. 5. Education: The patient and her were educated at length on signs and symptoms of new or worsening condition and when to return to the emergency room. Both stated understanding. PLAN: This plan was discussed with my attending, Dr. Iggy Wells, who agreed with my plan. TIME SPENT: Approximately 35 minutes were spent on this discharge, greater than half the time was spent [id number] with the patient discussing my discharge plan and completing my assessment. MONIQUE SALOMON NP [id number]/[facility] #: [id number] LIANA
== END 2018-10-10 18:40 | disposition home or self-care (01) | DRG 720 ==
LOC: ED 14:33 → MED 22:00 → OBSVTOIN 10-07 12:48
PROVIDERS: ADMIT Pediatrics; ATTEND Internal Medicine
DX: A41.9 Sepsis, unspecified organism (principal); N12 Tubulo-interstitial nephritis, not specified as acute or chronic; J90 Pleural effusion, not elsewhere classified; J81.1 Chronic pulmonary edema; B96.20 Unspecified Escherichia coli [E. coli] as the cause of diseases classified elsewhere; I08.1 Rheumatic disorders of both mitral and tricuspid valves; D64.9 Anemia, unspecified; R07.9 Chest pain, unspecified; R59.9 Enlarged lymph nodes, unspecified; Z98.51 Tubal ligation status
CPT/HCPCS: 36415; 71275; 74176; 80048; 80053; 81003; 81015; 82607; 82728; 82746; 83540; 83550; 83605; 83690; 83880; 85025; 85060; 85379; 86140; 86141; 87040; 87077; 87086; 87186; 93005; 93306; 99283; A9270-GY; G0378; J0696; J0744; J1885; J2405; Q9967